=== PATIENT | female | born 1965 | race Caucasian/White ===

== ENCOUNTER → 2018-04-11 | Outpatient (CLI) | payer BC ==
[2018-04-11 16:17] LABS: Anisocytosis Slight; HGB 14.3 gm/dL (11.4-16.0); MCH 26.5 pg (25.0-35.0); MCHC 31.9 g/dL (31.0-37.0); MCV 83.1 fL (80.0-100.0); Platelet Count 197 k/uL (150-450); RBC 5.42 m/uL (3.80-5.40); RDW 16.9 % (11.5-15.5); WBC 3.4 k/uL (3.8-10.6)
[2018-04-11 23:03] LABS: Albumin 4.2 g/dL (3.80-4.90); Albumin/Globulin Ratio 1.91 (1.60-3.17); Anion Gap 16.8 mmol/L (4.00-12.00); Calcium 9.5 mg/dL (8.7-10.3); Carbon Dioxide 23.2 mmol/L (21.6-31.8); Globulin 2.2 g/dL (1.6-3.3); Phosphorus 4.3 mg/dL (2.4-5.1); Total Bilirubin 0.4 mg/dL (0.3-1.2); Total Protein 6.4 g/dL (6.2-8.2)
[2018-04-11 23:04] LABS: LDL Cholesterol,Calculated 77.2 mg/dL (0.0-131.0); Magnesium 1.9 mg/dL (1.5-2.4); Uric Acid 10.5 mg/dL (2.9-7.7); VLDL Calculation 19.8 mg/dL (5.00-40.00)
[2018-04-11 23:06] LABS: Vitamin D 25 Hydroxy 56.7 ng/mL (30.0-100.0)
[2018-04-11 23:15] LABS: Folate, Serum 12.8 ng/mL
[2018-04-12 02:06] LABS: Hemoglobin A1C 5.1 % (4.0-6.0)
== END | disposition home or self-care (01) ==
LOC: LABWHC1 15:52
PROVIDERS: ATTEND Surgery
DX: I10 Essential (primary) hypertension (principal); K21.9 Gastro-esophageal reflux disease without esophagitis; M25.50 Pain in unspecified joint; G47.33 Obstructive sleep apnea (adult) (pediatric); E66.01 Morbid (severe) obesity due to excess calories; Z79.899 Other long term (current) drug therapy
CPT/HCPCS: 36415; 80053; 80061; 82306; 82607; 82746; 83036; 83540; 83735; 84100; 84425; 84550; 85027

== ENCOUNTER → 2018-04-16 | Outpatient (CLI) | payer BC ==
[2018-04-16 17:00] VITALS: BP 136/88; PULSE 64; TEMP 97.5; BMI 41.1
--- NOTE | 2018-04-16 17:46 | P.HPBAR ---
Bariatric H&P - History & Physicial H&P Date: 04/16/18 History & Physicial: Visit/CC: bariatric follow up Patient initial contact: Initial weight: Initial weight in pounds: Height: 5 ft 5 in Initial BMI: Last weight: Current weight: 112.037 kg Current weight in pounds: 247.00 Current BMI: 41.1 [place] body weight (based on NIH guidelines): 56.699 kg Excess body weight loss: The patient is a 52 year-old F who presents for Bariatric Assessment. HPI: She presents after weight loss surgery at a different center in [place]. Feb 25 gastric bypass. One vomiting event. No nausea. No belly pain. She had a drain placed and remobed. She had rumbling and loud sounds of the belly. She is on an antacid Omeprazole. Highest weight 324 pounds. Today she comes in 247.5 pounds. She is on a MVI. Protein is 60 grams. High blood pressure prior to surgery. Sleep apnea is now resolved. CPAP machine is very strong. For exercise, no further pain. No gallbladder. ABDOMEN: No hernia PLAN: 1. Went over labs 2. Recommend labs in July. 3. Followup in 6 months follow-up Past Medical History Past Medical History: GERD/Reflux History of Any Multi-Drug Resistant Organisms: None Reported Past Surgical History: Bariatric Surgery, Cholecystectomy, Orthopedic Surgery Additional Past Surgical History / Comment(s): knee replacement gastric bypass -18 in [place] Past Anesthesia/Blood Transfusion Reactions: No Reported Reaction Past Psychological History: Depression Smoking Status: Never smoker Past Alcohol Use History: Occasional Past Drug Use History: None Reported Surgical - Exam Vital Signs Temp Pulse BP 97.5 F L 64 136/88 04/16/18 16:48 04/16/18 16:48 04/16/18 16:48 Bariatric Checklist Checklist: Plan: Checklist: EGD: 1. Hiatal hernia: 2. H. Pylori: HgbA1c: Vitamin D: Smoking: Never smoker Primary care physician referral: Psychiatry clearance: Cardiology clearance: Sleep study: Diet journal: VTE risk score: VTE risk level: Rehab needs at discharge:
== END ==
LOC: BARWHC3 14:59
PROVIDERS: ATTEND Surgery Plastic and Reconstructive Surgery
DX: E66.01 Morbid (severe) obesity due to excess calories (principal)
CPT/HCPCS: 97803; 99201; 99211

== ENCOUNTER → 2018-06-27 | Outpatient (CLI) | payer BC ==
[2018-06-27 13:01] LABS: Anisocytosis Slight; HCT 45.7 % (34.0-46.0); HGB 14.2 gm/dL (11.4-16.0); MCH 27.7 pg (25.0-35.0); MCV 89.3 fL (80.0-100.0); Mean Platelet Volume 8.7; Platelet Count 228 k/uL (150-450); RBC 5.12 m/uL (3.80-5.40); RDW 16.4 % (11.5-15.5); WBC 5.7 k/uL (3.8-10.6)
[2018-06-27 13:16] LABS: Prothrombin Time 10.5 sec (9.0-12.0)
[2018-06-27 18:59] LABS: Albumin 4.3 g/dL (3.80-4.90); Albumin/Globulin Ratio 1.95 (1.60-3.17); Anion Gap 12.7 mmol/L (4.00-12.00); Calcium 9.5 mg/dL (8.7-10.3); Carbon Dioxide 24.3 mmol/L (21.6-31.8); Globulin 2.2 g/dL (1.6-3.3); Iron Saturation 12.29 (12.00-45.00); LDL Cholesterol,Calculated 114.6 mg/dL (0.0-131.0); Magnesium 2.2 mg/dL (1.5-2.4); Phosphorus 4.5 mg/dL (2.4-5.1); Potassium 4.1 mmol/L (3.5-5.5); Total Bilirubin 0.6 mg/dL (0.3-1.2); Total Protein 6.5 g/dL (6.2-8.2); VLDL Calculation 18.4 mg/dL (5.00-40.00)
[2018-06-27 19:08] LABS: Vitamin D 25 Hydroxy 56.6 ng/mL (30.0-100.0)
[2018-06-27 19:17] LABS: Parathyroid Hormone Intact 83.4 pg/mL (14.0-72.0)
[2018-06-27 19:22] LABS: Folate, Serum 12.6 ng/mL
[2018-06-27 19:55] LABS: Hemoglobin A1C 4.9 % (4.0-6.0)
[2018-06-30 05:48] LABS: Vitamin A 25 ug/dL (38-106)
[2018-07-01 06:15] LABS: Zinc, Serum 78 ug/dL (60-130)
== END | disposition home or self-care (01) ==
LOC: LABWHC1 12:18
PROVIDERS: ATTEND Surgery Plastic and Reconstructive Surgery
DX: E21.1 Secondary hyperparathyroidism, not elsewhere classified (principal); D50.9 Iron deficiency anemia, unspecified; E89.1 Postprocedural hypoinsulinemia; E44.0 Moderate protein-calorie malnutrition; E55.9 Vitamin D deficiency, unspecified; K74.1 Hepatic sclerosis; N19 Unspecified kidney failure; K50.90 Crohn's disease, unspecified, without complications; E66.01 Morbid (severe) obesity due to excess calories
CPT/HCPCS: 36415; 80053; 80061; 82306; 82525; 82607; 82728; 82746; 83036; 83540; 83550; 83735; 83970; 84100; 84134; 84255; 84425; 84443; 84590; 84630; 85027; 85610; 85730

== ENCOUNTER → 2018-07-02 | Outpatient (CLI) | payer BC ==
[2018-07-02 16:28] VITALS: BP 124/83; PULSE 71; RESP 16; TEMP 97.8; BMI 37.1
--- NOTE | 2018-07-02 17:24 | P.PN ---
Subjective Progress Note Date: 07/02/18 HPI: She reports chronic iron deficiency anemia. She has pain when she does not take her Omeprazole. ABDOMEN: Unremarkable ASSESSMENT: 1. Morbid obesity 2. Iron deficiency anemia 3. Vitamin A deficiency PLAN: 1. Iron infusion 2. Vitamin A 10,000 units daily 3. Increase fiber to 25 grams daily 4. Increase to 90 oz. 5. Food diary journal reviewed. Objective - Vital Signs Vital signs: Vital Signs Temp 97.8 F 07/02/18 16:25 Pulse 71 07/02/18 16:25 Resp 16 07/02/18 16:25 BP 124/83 07/02/18 16:25 Pulse Ox 98 07/02/18 16:25 Intake & Output 07/01/18 07/02/18 07/02/18 18:59 06:59 18:59 Weight 101.333 kg
== END | disposition home or self-care (01) ==
LOC: BARWHC3 15:28
PROVIDERS: ATTEND Surgery Plastic and Reconstructive Surgery
DX: E66.01 Morbid (severe) obesity due to excess calories (principal); D50.9 Iron deficiency anemia, unspecified; E50.9 Vitamin A deficiency, unspecified; Z68.37 Body mass index [BMI] 37.0-37.9, adult
CPT/HCPCS: 97803; 99211

== ENCOUNTER → 2018-07-03 | Outpatient (CLI) | payer BC ==
--- NOTE | 2018-07-04 09:59 | US ---
EXAMINATION TYPE: US pelvis complete transvag DATE OF EXAM: 07/03/2018 COMPARISON: NONE CLINICAL HISTORY: N92.1 Menorrhagia. Menorrhagia. Last period lasted 3 weeks. Last period was in . Premenopausal. TECHNIQUE: Transvaginal (TV) and Transabdominal (TA) . Transabdominal sonographic images of the pel vis were acquired. Transvaginal sonographic images were medically necessary to better assess the fol lowing anatomy: Endometrium and ovaries. Date of LMP: Pt unsure, in February. EXAM MEASUREMENTS: Uterus: 7.4 x 4.1 x 3.7 cm Endometrial Stripe: 0.45 cm Right Ovary: Not seen Left Ovary: Not seen 1. Uterus: Appears very heterogeneous. Anteverted. Hypoechoic area seen lower uterine segment sugges tive of a nabothian cyst. 2. Endometrium: Limited in visibility. 3. Right Ovary: Not visualized. 4. Left Ovary: Not visualized. 5. Bilateral Adnexa: appears wnl. 6. Posterior cul-de-sac: appears wnl. IMPRESSION: 1. No suspicious acute changes. 2. Probable nabothian cyst cervix. 3. Uterus is heterogenous. Discrete masses are not identified. 4. MRI is available if closer evaluation would be of benefit.
== END | disposition home or self-care (01) ==
LOC: RADUSWWP 15:41
PROVIDERS: ATTEND Obstetrics & Gynecology
DX: N85.8 Other specified noninflammatory disorders of uterus (principal); N92.1 Excessive and frequent menstruation with irregular cycle
CPT/HCPCS: 76830; 76856

== ENCOUNTER → 2018-07-16 | Outpatient (CLI) | payer BC ==
--- NOTE | 2018-07-17 08:28 | BD ---
EXAMINATION TYPE: Axial Bone Density DATE OF EXAM: 07/16/2018 COMPARISON: NONE CLINICAL HISTORY: post menopausal : n Height: 5'3 / Weight: 215 FRAX RISK QUESTIONS: Secondary Osteoporosis: 3. Menopause before 45: n RISK FACTORS HISTORY OF: If Premenopausal, do you have irregular periods: y MEDICATIONS: Thyroid Medications: Which medication: Synthroid How Lon month Additional Medications: anti depressant, reflux medicine Additional History: gastric bypass 02/2018 EXAM MEASUREMENTS: Bone mineral densitometry was performed using the [employer] System. Bone mineral density as measured about the Lumbar spine is: ----- L1-L4(G/cm2): 1.222 T Score Values are as follows: ----- L2: 0.3 ----- L3: 0.6 ----- L4: 0.4 ----- L1-L4: 0.3 Bone mineral density about the R hip (g/cm2): 0.949 Bone mineral density about the L hip (g/cm2): 0.930 T Score values are as follows: -----R Neck: -0.6 -----L Neck: -0.8 -----R Total: 0.5 -----L Total: -0.1 IMPRESSION: Normal (Values between +1 and -1 indicate normal bone mass). Consider repeating this study in 5 year s or sooner if there is some new clinical indication. NOTE: T-SCORE=SD OF THE YOUNG ADULT MEAN.
--- NOTE | 2018-07-18 14:09 | MM ---
Reason for exam: screening (asymptomatic). Last mammogram was performed 2 years and 6 months ago. History: Patient is nulliparous. Physical Findings: A clinical breast exam by your physician is recommended on an annual basis and results should be correlated with mammographic findings. MG 3D Screening Mammo W/Cad Bilateral CC and MLO view(s) were taken. Prior study comparison: January 20, 2016, mammogram, performed at [facility]. April 07, 2012, mammogram, performed at [facility]. The breast tissue is heterogeneously dense. This may lower the sensitivity of mammography. No significant changes when compared with prior studies. ASSESSMENT: Benign, BI-RAD 2 RECOMMENDATION: Routine screening mammogram of both breasts in 1 year.
== END | disposition home or self-care (01) ==
LOC: RADBDWWP 15:30
PROVIDERS: ATTEND Internal Medicine
DX: Z12.31 Encounter for screening mammogram for malignant neoplasm of breast (principal); N95.1 Menopausal and female climacteric states
CPT/HCPCS: 77063; 77067; 77080

== ENCOUNTER → 2018-09-18 | Outpatient (CLI) | payer OTHER ==
[2018-09-18 11:01] LABS: HCT 47.7 % (34.0-46.0); HGB 15.4 gm/dL (11.4-16.0); MCH 30.4 pg (25.0-35.0); MCHC 32.2 g/dL (31.0-37.0); MCV 94.4 fL (80.0-100.0); Mean Platelet Volume 8.3; Platelet Count 202 k/uL (150-450); RBC 5.06 m/uL (3.80-5.40); RDW 14.5 % (11.5-15.5); WBC 4.6 k/uL (3.8-10.6)
[2018-09-18 11:13] LABS: Partial Thromboplastin Time 25.3 sec (22.0-30.0); Prothrombin Time 10.5 sec (9.0-12.0)
[2018-09-18 18:47] LABS: Albumin 4.1 g/dL (3.80-4.90); Albumin/Globulin Ratio 1.95 (1.60-3.17); Anion Gap 10.6 mmol/L (4.00-12.00); BUN/Creat Ratio 25.71 Ratio (12.00-20.00); Calcium 9.4 mg/dL (8.7-10.3); Carbon Dioxide 29.4 mmol/L (21.6-31.8); Globulin 2.1 g/dL (1.6-3.3); Magnesium 2.2 mg/dL (1.5-2.4); Phosphorus 4.9 mg/dL (2.4-5.1); Potassium 4.3 mmol/L (3.5-5.5); Total Bilirubin 0.6 mg/dL (0.3-1.2); Total Protein 6.2 g/dL (6.2-8.2)
[2018-09-18 18:55] LABS: Vitamin D 25 Hydroxy 59.2 ng/mL (30.0-100.0)
[2018-09-18 19:11] LABS: Folate, Serum 12.8 ng/mL; Iron Saturation 27.42 (12.00-45.00)
[2018-09-19 12:44] LABS: Zinc, Serum 71 ug/dL (60-130)
== END | disposition home or self-care (01) ==
LOC: LABWHC1 09:52
PROVIDERS: ATTEND Surgery Plastic and Reconstructive Surgery
DX: E79.0 Hyperuricemia without signs of inflammatory arthritis and tophaceous disease (principal); E66.01 Morbid (severe) obesity due to excess calories; E21.1 Secondary hyperparathyroidism, not elsewhere classified; E89.1 Postprocedural hypoinsulinemia; D50.9 Iron deficiency anemia, unspecified; K90.9 Intestinal malabsorption, unspecified; E55.9 Vitamin D deficiency, unspecified; K76.9 Liver disease, unspecified; N19 Unspecified kidney failure; K50.90 Crohn's disease, unspecified, without complications
CPT/HCPCS: 36415; 80053; 80061; 82306; 82525; 82607; 82728; 82746; 83036; 83540; 83550; 83735; 83970; 84100; 84134; 84255; 84425; 84443; 84550; 84590; 84630; 85027; 85610; 85730

== ENCOUNTER → 2018-10-01 | Outpatient (CLI) | payer BC, OTHER ==
--- NOTE | 2018-10-01 16:37 | P.PN ---
Subjective Progress Note Date: 10/01/18 DATE OF SERVICE: 10/01/2018 CHIEF COMPLAINT: Status post gastric bypass HISTORY OF PRESENT ILLNESS: Teddy Worley is a 53-year-old female who presents after weight loss surgery at a different center in [place]. She had her surgery Feb 25, 2018 for gastric bypass. She is 7 months out. She has lost another 50 pounds in 3 months. She reports her epigastric pain is better after taking Omeprazole. She is on thyroid supplement. At height of 5 feet 5 inches, her ideal body weight is 149 pounds. She comes in 188 pounds from 223 pounds, 3 months ago. She has lost 35 pounds in 3 months. Her highest weight was 324 pounds. Her body mass index highest was 54.0. Today her BMI is 31.3. She has lost 136 pounds lifetime. Lifetime percent excess weight loss is 78 %. PAST MEDICAL HISTORY: 1. Morbid obesity due to excess calories 2. Body mass index of 54.0, initial 3. Osteoarthritis of the knees. 4. Osteoarthritis of the lower back. 5. Hypertensive heart disease. 6. Gastroesophageal reflux disease 7. Depressive disorder 8. Obstructive sleep apnea PAST SURGICAL HISTORY: 1. Cholecystectomy 2. Gastric Bypass 3. Orthopedic procedure HOME MEDICATIONS: ALLERGIES: Medications and Allergies Home Medications Medication Instructions Recorded Confirmed Type Calcium Citrate 250 mg PO TID 04/09/18 07/02/18 History Multivitamins, Thera [Multivitamin 1 tab PO DAILY 04/09/18 07/02/18 History (formulary)] Omeprazole 20 mg PO BID 04/09/18 07/02/18 History Sertraline [Zoloft] 25 mg PO DAILY 04/09/18 07/02/18 History Levothyroxine Sodium [Synthroid] 50 mcg PO DAILY #60 tab 05/15/18 07/02/18 Rx [place]-3 Fatty Acids [[place]-3] 1,000 mg PO DAILY 07/02/18 07/02/18 History Allergies Allergy/AdvReac Type Severity Reaction Status Date / Time nickel Allergy Swelling Verified 07/02/18 16:23 Tetracyclines Allergy Rash/Hives Verified 07/02/18 16:23 SOCIAL HISTORY: Past tobacco use. FAMILY HISTORY: No family history of ulcerative colitis disease or Crohn's disease. Family history of morbid obesity. No lupus in the family. No reports of stomach or esophageal cancer. REVIEW OF ORGAN SYSTEMS: CONSTITUTIONAL: At height of 5 feet 5 inches, her ideal body weight is 149 pounds. Her highest weight was 324 pounds. Her body mass index highest was 54.0. HEENT: Denies any active troubles with vision or hearing. No troubles with swallowing. ENDOCRINE: No diabetes. No hypothyroidism. CARDIOVASCULAR: No reports of palpitations or heart attacks or chest pain. RESPIRATORY: Has daytime somnolence. No asthma. GI: Denies any bright red blood per rectum. No diarrhea. Has constipation. MUSCULOSKELETAL: Has lower back pain and joint pain. Has osteoarthritis of the knees. NEURO: No headaches. No seizure disorders. PSYCH: Has depression. No suicidal ideation. RHEUMATOLOGIC: No lupus. No rheumatoid arthritis. HEMATOLOGIC: Denies any abnormal bleeding or bruising. No personal history of DVTs. SKIN: No rash. No skin cancer. PHYSICAL EXAM: VITAL SIGNS: Height 5 foot 5 inches, weight 188 pounds. BMI 31.3 Vital Signs Temp 97.8 F 07/02/18 16:25 Pulse 71 07/02/18 16:25 Resp 16 07/02/18 16:25 BP 124/83 07/02/18 16:25 Pulse Ox 98 07/02/18 16:25 GENERAL: Well-developed in no acute distress. HEENT: No scleral icterus. Extraocular movements grossly intact. Hears conversational speech. No nasal drainage. NECK: Supple without lymphadenopathy. CHEST: Nonlabored respirations with equal bilateral excursions. CARDIOVASCULAR: Regular rate and regular rhythm. Distal 2+ pulses. ABDOMEN: Obese, soft, nontender, nondistended. No hernia. MUSCULOSKELETAL: No clubbing, cyanosis. Gross strength 5/5 distal lower extremities. NEURO: No focal or lateralizing signs. Cranial nerves 2 through 12 grossly within normal limits. PSYCH: Appropriate affect. Alert and oriented to person, place and time. SKIN: Good skin turgor. Well perfused. LABS: Pre-albumin is low 14, Vitamin A is low 35, TSH is elevated 5.780 ASSESSMENT: 1. Morbid obesity due to excess calories 2. Body mass index of 54.0 3. Osteoarthritis of the knees. 4. Osteoarthritis of the lower back. 5. Hypertensive heart disease. 6. Gastroesophageal reflux disease 7. Depressive disorder 8. Obstructive sleep apnea 9. Iron deficiency anemia 10. Vitamin A deficiency 11. Chronic constipation 12. Dietary surveillance and counseling 13. Hypothyroidism, new PLAN: 1. Labs reviewed with Vitamin A supplement 8000 units daily 2. Will need renewal of Omeprazole 3. Recommend increase thyroid medications 4. Recommend upper scope for gastric ulcers Objective - Vital Signs Vital signs: Vital Signs Temp 97.8 F 10/01/18 15:58 Pulse 76 10/01/18 15:58 Resp 16 10/01/18 15:58 BP 121/84 10/01/18 15:58 Pulse Ox Intake & Output 09/30/18 10/01/18 10/01/18 18:59 06:59 18:59 Weight 85.304 kg
== END ==
CPT/HCPCS: 99211

== ENCOUNTER 2018-11-03 10:11 | Day surgery (SDC) | payer OTHER ==
[2018-10-31 11:33] VITALS: BMI 28.8
--- NOTE | 2018-11-03 01:56 | P.GSHP ---
History of Present Illness H&P Date: 11/03/18 CHIEF COMPLAINT: GERD HISTORY OF PRESENT ILLNESS: The patient is a 53-year-old female who presents reports gastroesophageal reflux disease. Upper endoscopy was offered for further evaluation and management. PAST MEDICAL HISTORY: Please see list. PAST SURGICAL HISTORY: Please see list. MEDICATIONS: Please see list. ALLERGIES: Please see list. SOCIAL HISTORY: No illicit drug use FAMILY HISTORY: No reports of Crohn disease or ulcerative colitis. REVIEW OF ORGAN SYSTEMS: CONSTITUTIONAL: No reports of fevers or chills. GI: Denies any blood in stools or constipation. PHYSICAL EXAM: VITAL SIGNS: Stable GENERAL: Well-developed and pleasant in no acute distress. HEENT: No scleral icterus. Extraocular movements grossly intact. Moist buccal mucosa. NECK: Supple without lymphadenopathy. CHEST: Unlabored respirations. Equal bilateral excursions. CARDIOVASCULAR: Regular rate and rhythm. Distal 2+ pulses. ABDOMEN: Soft, nondistended. MUSCULOSKELETAL: No clubbing, cyanosis, or edema. ASSESSMENT: 1. Gastroesophageal reflux disease PLAN: 1. Recommend proceeding with an upper endoscopy Past Medical History Past Medical History: GERD/Reflux History of Any Multi-Drug Resistant Organisms: None Reported Past Surgical History: Bariatric Surgery, Cholecystectomy, Orthopedic Surgery Additional Past Surgical History / Comment(s): left knee replacement, EGD, gastric bypass 1218 in [place] (Dr. Neida Sadler resumed care of patient at 30 day luz). Past Anesthesia/Blood Transfusion Reactions: Previous Problems w/ Anesthesia Additional Past Anesthesia/Blood Transfusion Reaction / Comment(s): states "woke up choking with previous EGD" states "takes alot to put me to sleep" Smoking Status: Never smoker - Past Family History Mother Family Medical History: No Reported History Medications and Allergies Home Medications Medication Instructions Recorded Confirmed Type Calcium Citrate 250 mg PO TID 04/09/18 10/31/18 History Multivitamins, Thera [Multivitamin 1 tab PO DAILY 04/09/18 10/31/18 History (formulary)] Sertraline [Zoloft] 25 mg PO DAILY 04/09/18 10/31/18 History Docusate [Colace] 100 mg PO BID #60 capsule 10/01/18 10/31/18 Rx Levothyroxine Sodium [Synthroid] 75 mcg PO DAILY #90 tab 10/01/18 10/31/18 Rx Omeprazole 20 mg PO DAILY #30 cap 10/01/18 10/31/18 Rx Polyethylene Glycol 3350 [Miralax] 17 gm PO DAILY #30 packet 10/01/18 10/31/18 Rx Vitamin A Acetate [Vitamin A] 10,000 unit SL DAILY 10/31/18 10/31/18 History Allergies Allergy/AdvReac Type Severity Reaction Status Date / Time nickel Allergy Swelling Verified 10/31/18 11:27 Tetracyclines Allergy Rash/Hives Verified 10/31/18 11:27 steri strips Allergy blisters Uncoded 10/31/18 11:27
[~2018-11-03 10:11] MED LIST: LACTATED RINGERS 1,000 ML IV SCH; LIDOCAINE 1% 20 ML VIAL (10MG/ML) FOR IV START INTRADERMA PRN
[2018-11-03 10:45] VITALS: RESP 16; TEMP 97.4
[2018-11-03] MEDS ORDERED: KETAMINE 10 MG/ML 20 ML VIAL ONE (10:51)
[2018-11-03] MEDS ORDERED: MIDAZOLAM 2 MG/2 ML VIAL ONE (10:51)
[2018-11-03] MEDS ORDERED: LIDOCAINE 1% INJ 10MG/ML (20 ML MDV) ONE (10:51)
[2018-11-03] MEDS ORDERED: PROPOFOL 10 MG/ML 20 ML VIAL IV ONE (10:51)
[2018-11-03 11:16] VITALS: BP 95/59; PULSE 82
--- NOTE | 2018-11-03 11:16 | P.PCN ---
Date of Procedure: 11/03/18 Description of Procedure: PREOPERATIVE DIAGNOSIS: Dysphagia. Epigastric abdominal pain Gastroesophageal reflux disease POSTOPERATIVE DIAGNOSIS: Dysphagia. Epigastric abdominal pain Gastroesophageal reflux disease Gastrojejunal stricture without chronic ulcer without perforation Diaphragmatic hiatal hernia OPERATION: Esophagogastrojejunoscopy with balloon dilatation from 15 to 20 mm. SURGEON: Neida Sadler MD ANESTHESIA: MAC. INDICATIONS: The patient is a 53-year-old female who presents with a history of dysphagia, gastric bypass including new-onset nausea and vomiting. Benefits and risks of the procedure were described. Informed consent was obtained. DESCRIPTION: The patient was brought into the endoscopy suite and laid in the left lateral decubitus position. After a timeout was confirmed, the procedure was initiated. An Olympus gastroscope was passed along the posterior oropharynx down to the distal esophagus where the squamocolumnar junction was unremarkable. The gastric pouch was entered. A gastrojejunal stricture of 15 mm was found as the adult gastroscope was 9.5 mm in size. A [employer] balloon dilator was placed through the scope. Final insufflation up to 20 mm was performed with a total of 2 minutes. The scope was advanced up to 60 cm from the incisors into the Ava limb. The mucosa of the gastrojejunal anastomosis was intact. No chronic gastrojejunal marginal ulcer was encountered. No full-thickness injury was encountered. The GI tract was desufflated. The patient tolerated the procedure well. FINDINGS: Squamocolumnar junction unremarkable at 37 cm. Stricture of approximately 15 mm encountered. No chronic gastrojejunal ulceration encountered. Successful balloon dilatation to 20 mm. Diaphragmatic hiatus at 40 cm. Gastric pouch 3 cm. Diaphragmatic hiatal hernia 3 cm RECOMMENDATIONS: Upper endoscopy as needed Plan - Discharge Summary Discharge Rx Participant: No New Discharge Prescriptions: No Action Sertraline [Zoloft] 25 mg PO DAILY Multivitamins, Thera [Multivitamin (formulary)] 1 tab PO DAILY Calcium Citrate 250 mg PO TID Levothyroxine Sodium [Synthroid] 75 mcg PO DAILY #90 tab Omeprazole 20 mg PO DAILY #30 cap Docusate [Colace] 100 mg PO BID #60 capsule Polyethylene Glycol 3350 [Miralax] 17 gm PO DAILY #30 packet Vitamin A Acetate [Vitamin A] 10,000 unit SL DAILY Discharge Medication List Calcium Citrate 250 mg PO TID 04/09/18 [History] Multivitamins, Thera [Multivitamin (formulary)] 1 tab PO DAILY 04/09/18 [History] Sertraline [Zoloft] 25 mg PO DAILY 04/09/18 [History] Docusate [Colace] 100 mg PO BID #60 capsule 10/01/18 [Rx] Levothyroxine Sodium [Synthroid] 75 mcg PO DAILY #90 tab 10/01/18 [Rx] Omeprazole 20 mg PO DAILY #30 cap 10/01/18 [Rx] Polyethylene Glycol 3350 [Miralax] 17 gm PO DAILY #30 packet 10/01/18 [Rx] Vitamin A Acetate [Vitamin A] 10,000 unit SL DAILY 10/31/18 [History] Follow up Appointment(s)/Referral(s): [facility] [place], [place] [NON-STAFF] - 11/19/18 Patient Instructions/Handouts: Esophageal Dilation (DC), Hiatal Hernia (DC) Activity/Diet/Wound Care/Special Instructions: Diet as tolerated Discharge Disposition: HOME SELF-CARE
== END 2018-11-03 11:52 | disposition home or self-care (01) ==
LOC: ORWHC2ENDO 10:11
PROVIDERS: ATTEND Surgery Plastic and Reconstructive Surgery
DX: K95.89 Other complications of other bariatric procedure (principal); K44.9 Diaphragmatic hernia without obstruction or gangrene; K21.9 Gastro-esophageal reflux disease without esophagitis; E07.9 Disorder of thyroid, unspecified; Z90.49 Acquired absence of other specified parts of digestive tract; Z96.652 Presence of left artificial knee joint; Z79.890 Hormone replacement therapy; Z79.899 Other long term (current) drug therapy; Z88.1 Allergy status to other antibiotic agents; Z91.048 Other nonmedicinal substance allergy status; Z91.09 Other allergy status, other than to drugs and biological substances
CPT/HCPCS: 81025; 43245; J2250; J2001; J2704; C1726

== ENCOUNTER → 2019-03-26 | Outpatient (CLI) | payer OTHER ==
[2019-03-26 11:23] LABS: HCT 48.3 % (34.0-46.0); HGB 15.5 gm/dL (11.4-16.0); MCH 31.1 pg (25.0-35.0); MCV 97.1 fL (80.0-100.0); Mean Platelet Volume 7.4; Platelet Count 252 k/uL (150-450); RBC 4.97 m/uL (3.80-5.40); RDW 13.2 % (11.5-15.5); WBC 4.9 k/uL (3.8-10.6)
[2019-03-26 11:31] LABS: Prothrombin Time 10.3 sec (9.0-12.0)
[2019-03-26 15:46] LABS: % Iron Saturation 30.71 (12.00-45.00); African American GFR (CKD) 118.9 (60.0-200.0); Albumin 4.2 g/dL (3.80-4.90); Albumin/Globulin Ratio 2.63 (1.60-3.17); Anion Gap 9.7 mmol/L (4.00-12.00); BUN/Creat Ratio 28.33 Ratio (12.00-20.00); Carbon Dioxide 28.3 mmol/L (21.6-31.8); Chol/HDL Ratio 3.3; Globulin 1.6 g/dL (1.6-3.3); LDL Cholesterol,Calculated 140.4 mg/dL (0.0-131.0); Magnesium 2.2 mg/dL (1.5-2.4); Non-African American GFR(CKD) 102.6 (60.0-200.0); Phosphorus 4.2 mg/dL (2.4-5.1); Potassium 4.1 mmol/L (3.5-5.5); Total Bilirubin 0.6 mg/dL (0.3-1.2); Total Protein 5.8 g/dL (6.2-8.2); VLDL Calculation 11.6 mg/dL (5.00-40.00)
[2019-03-26 15:54] LABS: Ferritin 147.9 ng/mL (10.0-291.0)
[2019-03-26 16:21] LABS: Folate, Serum 18.6 ng/mL
[2019-03-26 16:34] LABS: Hemoglobin A1C 4.7 % (4.0-6.0)
[2019-03-27 13:50] LABS: Zinc, Serum 83 ug/dL (60-130)
[2019-03-28 11:13] LABS: Vitamin A 45 ug/dL (38-106)
[2019-03-28 23:15] LABS: Selenium 135 mcg/L (63-160)
[2019-03-30 06:31] LABS: Vit B1(Thiamine) 64 ug/L (38-122)
== END | disposition home or self-care (01) ==
LOC: LABWHC1 10:34
PROVIDERS: ATTEND Surgery Plastic and Reconstructive Surgery
DX: E66.01 Morbid (severe) obesity due to excess calories (principal); E21.1 Secondary hyperparathyroidism, not elsewhere classified; D50.9 Iron deficiency anemia, unspecified; K90.9 Intestinal malabsorption, unspecified; E55.9 Vitamin D deficiency, unspecified; K74.1 Hepatic sclerosis; N19 Unspecified kidney failure; K50.90 Crohn's disease, unspecified, without complications; E89.1 Postprocedural hypoinsulinemia
CPT/HCPCS: 36415; 80053; 80061; 82306; 82525; 82607; 82728; 82746; 83036; 83540; 83550; 83735; 83970; 84100; 84134; 84255; 84425; 84443; 84590; 84630; 85027; 85610; 85730

== ENCOUNTER → 2019-04-01 | Outpatient (CLI) | payer OTHER ==
[2019-04-01 16:21] VITALS: BP 122/80; PULSE 68; RESP 16; TEMP 97.9; BMI 23.9
--- NOTE | 2019-04-01 16:33 | P.PN ---
Subjective Progress Note Date: 04/01/19 DATE OF SERVICE: 04/01/2019 CHIEF COMPLAINT: Status post gastric bypass HISTORY OF PRESENT ILLNESS: Teddy Worley is a 53-year-old female who is status post gastric bypass in [place], Feb 25, 2018. She is 1 year out. She had knee surgery and had complications with a hematoma. She reports gastroesophageal reflux disease. She denies any active abdominal pain. She is happy with her weigh loss. She denies fatigue. She is off all blood pressure medications. At height of 5 feet 5 inches, her ideal body weight is 149 pounds. Her highest weight was 324 pounds. Her body mass index highest was 54.0. She comes in 144 pounds from 188 pounds, 6 months ago. She has lost 44 pounds in 6 months. T [place] her BMI is 24.0. She has lost 180 pounds lifetime. Lifetime percent excess weight loss is 103 %. PAST MEDICAL HISTORY: 1. Morbid obesity due to excess calories 2. Body mass index of 54.0, initial 3. Osteoarthritis of the knees. 4. Osteoarthritis of the lower back. 5. Hypertensive heart disease. 6. Gastroesophageal reflux disease 7. Depressive disorder 8. Obstructive sleep apnea PAST SURGICAL HISTORY: 1. Cholecystectomy 2. Gastric Bypass 3. Orthopedic procedure HOME MEDICATIONS: ALLERGIES: Medications and Allergies Home Medications Medication Instructions Recorded Confirmed Type Calcium Citrate 250 mg PO TID 04/09/18 07/02/18 History Multivitamins, Thera [Multivitamin 1 tab PO DAILY 04/09/18 07/02/18 History (formulary)] Omeprazole 20 mg PO BID 04/09/18 07/02/18 History Sertraline [Zoloft] 25 mg PO DAILY 04/09/18 07/02/18 History Levothyroxine Sodium [Synthroid] 50 mcg PO DAILY #60 tab 05/15/18 07/02/18 Rx [place]-3 Fatty Acids [[place]-3] 1,000 mg PO DAILY 07/02/18 07/02/18 History Allergies Allergy/AdvReac Type Severity Reaction Status Date / Time nickel Allergy Swelling Verified 07/02/18 16:23 Tetracyclines Allergy Rash/Hives Verified 07/02/18 16:23 SOCIAL HISTORY: Past tobacco use. FAMILY HISTORY: No family history of ulcerative colitis disease or Crohn's disease. Family history of morbid obesity. No lupus in the family. No reports of stomach or esophageal cancer. REVIEW OF ORGAN SYSTEMS: CONSTITUTIONAL: At height of 5 feet 5 inches, her ideal body weight is 149 pounds. Her highest weight was 324 pounds. Her body mass index highest was 54.0. HEENT: Denies any active troubles with vision or hearing. No troubles with swallowing. ENDOCRINE: No diabetes. No hypothyroidism. CARDIOVASCULAR: No reports of palpitations or heart attacks or chest pain. RESPIRATORY: Has daytime somnolence. No asthma. GI: Denies any bright red blood per rectum. No diarrhea. Has constipation. MUSCULOSKELETAL: Has lower back pain and joint pain. Has osteoarthritis of the knees. NEURO: No headaches. No seizure disorders. PSYCH: Has depression. No suicidal ideation. RHEUMATOLOGIC: No lupus. No rheumatoid arthritis. HEMATOLOGIC: Denies any abnormal bleeding or bruising. No personal history of DVTs. SKIN: No rash. No skin cancer. PHYSICAL EXAM: VITAL SIGNS: Height 5 foot 5 inches, weight 144 pounds. BMI 24.0 Vital Signs Temp 97.9 F 04/01/19 16:18 Pulse 68 04/01/19 16:18 Resp 16 04/01/19 16:18 BP 122/80 04/01/19 16:18 Pulse Ox GENERAL: Well-developed in no acute distress. HEENT: No scleral icterus. Extraocular movements grossly intact. Hears conversational speech. No nasal drainage. NECK: Supple without lymphadenopathy. CHEST: Nonlabored respirations with equal bilateral excursions. CARDIOVASCULAR: Regular rate and regular rhythm. Distal 2+ pulses. ABDOMEN: Obese, soft, nontender, nondistended. No hernia. MUSCULOSKELETAL: No clubbing, cyanosis. NEURO: No focal or lateralizing signs. Cranial nerves 2 through 12 grossly within normal limits. PSYCH: Appropriate affect. Alert and oriented to person, place and time. SKIN: Good skin turgor. Well perfused. LABS: Reviewed without any vitamin deficiences ASSESSMENT: 1. Morbid obesity due to excess calories 2. Body mass index of 54.0 to 24.0. 3. Osteoarthritis of the knees. 4. Osteoarthritis of the lower back 5. Hypertensive heart disease. 6. Gastroesophageal reflux disease 7. Depressive disorder 8. Obstructive sleep apnea 9. Iron deficiency anemia 10. Vitamin A deficiency 11. Chronic constipation 12. Dietary surveillance and counseling 13. Hypothyroidism, new PLAN: 1. She has symptomatic reflux with gastroesophageal reflux disease. 2. Recommend hiatal hernia repair for symptomatic reflux. Objective - Vital Signs Vital signs: Vital Signs Temp 97.9 F 04/01/19 16:18 Pulse 68 04/01/19 16:18 Resp 16 04/01/19 16:18 BP 122/80 04/01/19 16:18 Pulse Ox Intake & Output 03/31/19 04/01/19 04/01/19 18:59 06:59 18:59 Weight 65.317 kg
== END | disposition home or self-care (01) ==
LOC: BARWHC3 15:36
PROVIDERS: ATTEND Surgery Plastic and Reconstructive Surgery
DX: Z48.815 Encounter for surgical aftercare following surgery on the digestive system (principal); E66.01 Morbid (severe) obesity due to excess calories; M17.0 Bilateral primary osteoarthritis of knee; I11.9 Hypertensive heart disease without heart failure; K21.9 Gastro-esophageal reflux disease without esophagitis; G47.33 Obstructive sleep apnea (adult) (pediatric); D50.9 Iron deficiency anemia, unspecified; E50.9 Vitamin A deficiency, unspecified; K59.09 Other constipation; E03.9 Hypothyroidism, unspecified; Z71.3 Dietary counseling and surveillance; Z68.24 Body mass index [BMI] 24.0-24.9, adult; Z83.49 Family history of other endocrine, nutritional and metabolic diseases; Z87.891 Personal history of nicotine dependence; Z90.49 Acquired absence of other specified parts of digestive tract; Z79.899 Other long term (current) drug therapy; Z79.890 Hormone replacement therapy; Z88.1 Allergy status to other antibiotic agents; Z91.048 Other nonmedicinal substance allergy status
CPT/HCPCS: 99211

== ENCOUNTER → 2020-05-25 | Outpatient (CLI) | payer OTHER ==
[2020-05-26 01:02] LABS: Partial Thromboplastin Time 26.4 sec (23.5-31.0); Prothrombin Time 10.9 sec (9.9-11.9)
[2020-05-26 01:08] LABS: Basophils # (A) 0.01 X 10*3/uL (0.00-0.10); Basophils % (A) 0.2 %; Eosinophils # (A) 0.05 X 10*3/uL (0.04-0.35); HCT 48.1 % (37.2-46.3); HGB 15.2 g/dL (12.0-15.0); Lymphocytes # (A) 2.07 X 10*3/uL (0.90-5.00); Lymphocytes % (A) 39.5 %; MCH 29.7 pg (27.0-32.0); MCHC 31.6 g/dL (32.0-37.0); MCV 93.9 fL (80.0-97.0); Mean Platelet Volume 9.7 fL (9.5-12.2); Monocytes # (A) 0.32 X 10*3/uL (0.20-1.00); Monocytes % (A) 6.1 %; Neutrophils # (A) 2.78 X 10*3/uL (1.80-7.70); Platelet Count 281 X 10*3/uL (140-440); RBC 5.12 X 10*6/uL (4.10-5.20); RDW 12.3 % (11.5-14.5); WBC 5.24 X 10*3/uL (4.50-10.00)
[2020-05-26 05:00] LABS: % Iron Saturation 38.23 (12.00-45.00); ALT 26 U/L (8-44); AST 30 U/L (13-35); African American GFR (CKD) 112.3 (60.0-200.0); Albumin/Globulin Ratio 2.55 (1.60-3.17); Alkaline Phosphatase 62 U/L (41-126); Calcium 10.4 mg/dL (8.7-10.3); Carbon Dioxide 26.8 mmol/L (21.6-31.8); Chloride 100 mmol/L (96-109); Folate, Serum >24.0 ng/mL; Glucose 138 mg/dL (70-110); Iron 112 ug/dL (50-170); Magnesium 2.3 mg/dL (1.5-2.4); Non-African American GFR(CKD) 96.9 (60.0-200.0); Phosphorus 4.2 mg/dL (2.4-5.1); Potassium 4.2 mmol/L (3.5-5.5); Sodium 140 mmol/L (135-145); Total Bilirubin 0.7 mg/dL (0.3-1.2); Total Iron Binding Capacity 293 ug/dL (228-460); Total Protein 7.1 g/dL (6.2-8.2)
[2020-05-26 07:11] LABS: Hemoglobin A1C 5.2 % (4.0-6.0)
[2020-05-26 14:00] LABS: Zinc, Serum 88 ug/dL (60-130)
[2020-05-27 06:55] LABS: Vit B1(Thiamine) 82 ug/L (38-122)
[2020-05-27 07:03] LABS: Vitamin A 52 ug/dL (38-106)
== END | disposition home or self-care (01) ==
LOC: LABWHC1 15:05
PROVIDERS: ATTEND Surgery Plastic and Reconstructive Surgery
DX: E78.5 Hyperlipidemia, unspecified (principal); E03.9 Hypothyroidism, unspecified; E66.01 Morbid (severe) obesity due to excess calories; E89.1 Postprocedural hypoinsulinemia; D50.8 Other iron deficiency anemias; K90.89 Other intestinal malabsorption; E44.0 Moderate protein-calorie malnutrition; E55.9 Vitamin D deficiency, unspecified; K74.1 Hepatic sclerosis; N19 Unspecified kidney failure; K50.90 Crohn's disease, unspecified, without complications; Z12.31 Encounter for screening mammogram for malignant neoplasm of breast; Z79.899 Other long term (current) drug therapy
CPT/HCPCS: 36415; 80053; 82306; 82525; 82607; 82728; 82746; 83036; 83540; 83550; 83735; 83970; 84100; 84134; 84255; 84425; 84439; 84443; 84590; 84630; 85025; 85610; 85730

== ENCOUNTER 2020-05-26 14:55 | Inpatient (IN) | payer OTHER ==
[2020-05-26] MEDS ORDERED: IOPAMIDOL CONTRAST (ORAL USE) VIAL PO PRN (15:27)
[2020-05-26] MEDS ORDERED: HYDROmorphone 0.5 MG/0.5 ML SYRINGE IVP STA (15:28)
[2020-05-26] MEDS ORDERED: SODIUM CHLORIDE 0.9% 1,000 ML IV STA ×3 (15:28→17:21)
[2020-05-26 15:43] LABS: Basophils % (A) 0 %; Eosinophils # (A) 0.1 k/uL (0-0.7); Eosinophils % (A) 1 %; HCT 47.7 % (34.0-46.0); HGB 16.5 gm/dL (11.4-16.0); Lymphocytes # (A) 2.1 k/uL (1.0-4.8); Lymphocytes % (A) 24 %; MCH 31.3 pg (25.0-35.0); MCHC 34.7 g/dL (31.0-37.0); MCV 90.4 fL (80.0-100.0); Mean Platelet Volume 7.3; Monocytes # (A) 0.4 k/uL (0-1.0); Monocytes % (A) 4 %; Neutrophils # (A) 6.4 k/uL (1.3-7.7); Neutrophils % (A) 70 %; Platelet Count 322 k/uL (150-450); RBC 5.28 m/uL (3.80-5.40); RDW 12.3 % (11.5-15.5); WBC 9.1 k/uL (3.8-10.6)
--- NOTE | 2020-05-26 16:02 | ED ---
General Adult HPI - General Chief complaint: Abdominal Pain Stated complaint: Abd Pain Time Seen by Provider: 05/26/20 15:23 Source: EMS Mode of arrival: EMS - History of Present Illness Initial comments: 54-year-old female with a past medical history of GERD, vadim en Y who follows with Dr Sadler presents to the emergency room for a chief complaint of abdominal pain. Patient reports that she had abdominal pain starting earlier this morning and worsened significantly at 1. States it is in her mid abdomen. Patient states it is a very sharp pain.Patient has no other complaints at this time including shortness of breath, chest pain, nausea or vomiting, headache, or visual changes. - Related Data Home Medications Medication Instructions Recorded Confirmed Multivitamins, Thera [Multivitamin 1 tab PO DAILY 04/09/18 05/26/20 (formulary)] Vitamin A Acetate [Vitamin A] 10,000 unit SL DAILY 10/31/18 05/26/20 DULoxetine HCL [Cymbalta] 20 mg PO DAILY 05/26/20 05/26/20 L.acidoph,Paracasei, B.lactis 1 cap PO DAILY 05/26/20 05/26/20 [Probiotic] [place]-3 Fatty Acids [Boston-3] 1,000 mg PO DAILY 05/26/20 05/26/20 bisacodyL [Dulcolax] 10 mg PO BID PRN 05/26/20 05/26/20 Previous Rx's Medication Instructions Recorded Levothyroxine Sodium [Synthroid] 75 mcg PO DAILY #90 tab 10/01/18 Omeprazole 20 mg PO DAILY #30 cap 10/01/18 Allergies Allergy/AdvReac Type Severity Reaction Status Date / Time nickel Allergy Swelling Verified 05/26/20 16:10 Tetracyclines Allergy Rash/Hives Verified 05/26/20 16:10 steri strips Allergy blisters Uncoded 11/03/18 10:33 Review of Systems ROS Statement: Those systems with pertinent positive or pertinent negative responses have been documented in the HPI. ROS Other: All systems not noted in ROS Statement are negative. Past Medical History Past Medical History: GERD/Reflux History of Any Multi-Drug Resistant Organisms: None Reported Past Surgical History: Bariatric Surgery, Cholecystectomy, Orthopedic Surgery Additional Past Surgical History / Comment(s): left knee replacement, EGD, gastric bypass 12-18 in [place] (Dr. Neida Sadler resumed care of patient at 30 day luz). Past Anesthesia/Blood Transfusion Reactions: Previous Problems w/ Anesthesia Additional Past Anesthesia/Blood Transfusion Reaction / Comment(s): states "woke up choking with previous EGD" states "takes alot to put me to sleep" Past Psychological History: Depression Smoking Status: Never smoker Past Alcohol Use History: None Reported Past Drug Use History: None Reported - Past Family History Mother Family Medical History: No Reported History General Exam General appearance: alert Head exam: Present: atraumatic, normocephalic, normal inspection Eye exam: Present: normal appearance, PERRL, EOMI. Absent: scleral icterus, conjunctival injection, periorbital swelling ENT exam: Present: normal exam, mucous membranes moist Neck exam: Present: normal inspection, full ROM Respiratory exam: Present: normal lung sounds bilaterally. Absent: respiratory distress, wheezes, rales, rhonchi, stridor Cardiovascular Exam: Present: regular rate, normal rhythm, normal heart sounds. Absent: systolic murmur, diastolic murmur, rubs, gallop, clicks GI/Abdominal exam: Present: soft, tenderness (generalized abdominal pain), normal bowel sounds. Absent: distended, guarding, rebound, rigid Course Vital Signs 05/26/20 05/26/20 05/26/20 15:08 15:34 16:20 Temperature 97.9 F Pulse Rate 92 69 67 Respiratory 20 18 18 Rate Blood Pressure 151/107 151/90 118/79 O2 Sat by Pulse 100 100 100 Oximetry Medical Decision Making - Medical Decision Making Vitals are stable. Patient does have generalized abdominal tenderness. CBC CMP unremarkable. However patient does have lactic acidosis of 6.0. CT abdomen and pelvis did show mesenteric edema of uncertain etiology as well as partial small bowel obstruction. Concern obviously is for mesenteric ischemia at this time. Discussed case with Dr. Tovar who recommended we call patient's personal surgeon Dr. Sadler. She does accept this admission, requests 2 L of fluids which have been given as well as maintenance fluids. Patient will be kept nothi ng by mouth. - Lab Data Result diagrams: 05/26/20 15:34 05/26/20 16:14 Lab Results 05/26/20 05/26/20 05/26/20 Range/Units 15:34 15:34 16:14 WBC 9.1 (3.8-10.6) k/uL RBC 5.28 (3.80-5.40) m/uL Hgb 16.5 H (11.4-16.0) gm/dL Hct 47.7 H (34.0-46.0) % MCV 90.4 (80.0-100.0) fL MCH 31.3 (25.0-35.0) pg MCHC 34.7 (31.0-37.0) g/dL RDW 12.3 (11.5-15.5) % Plt Count 322 (150-450) k/uL MPV 7.3 Neutrophils % 70 % Lymphocytes % 24 % Monocytes % 4 % Eosinophils % 1 % Basophils % 0 % Neutrophils # 6.4 (1.3-7.7) k/uL Lymphocytes # 2.1 (1.0-4.8) k/uL Monocytes # 0.4 (0-1.0) k/uL Eosinophils # 0.1 (0-0.7) k/uL Basophils # 0.0 (0-0.2) k/uL Sodium 135 L (137-145) mmol/L Potassium 3.1 L (3.5-5.1) mmol/L Chloride 105 (98-107) mmol/L Carbon Dioxide 22 (22-30) mmol/L Anion Gap 8 mmol/L BUN 16 (7-17) mg/dL Creatinine 0.49 L (0.52-1.04) mg/dL Est GFR (CKD-EPI)AfAm >90 (>60 ml/min/1.73 sqM) Est GFR (CKD-EPI)NonAf >90 (>60 ml/min/1.73 sqM) Glucose 144 H (74-99) mg/dL Plasma Lactic Acid Marco A 6.0 H* (0.7-2.0) mmol/L Calcium 8.0 L (8.4-10.2) mg/dL Total Bilirubin 0.5 (0.2-1.3) mg/dL AST 28 (14-36) U/L ALT 19 (4-34) U/L Alkaline Phosphatase 47 (38-126) U/L Total Protein 5.3 L (6.3-8.2) g/dL Albumin 3.2 L (3.5-5.0) g/dL Amylase 49 (30-110) U/L Lipase 171 (23-300) U/L Urine Color Urine Appearance (Clear) Urine pH (5.0-8.0) Ur Specific Boody (1.001-1.035) Urine Protein (Negative) Urine Glucose (UA) (Negative) Urine Ketones (Negative) Urine Blood (Negative) Urine Nitrite (Negative) Urine Bilirubin (Negative) Urine Urobilinogen (<2.0) mg/dL Ur Leukocyte Esterase (Negative) 05/26/20 Range/Units 16:32 WBC (3.8-10.6) k/uL RBC (3.80-5.40) m/uL Hgb (11.4-16.0) gm/dL Hct (34.0-46.0) % MCV (80.0-100.0) fL MCH (25.0-35.0) pg MCHC (31.0-37.0) g/dL RDW (11.5-15.5) % Plt Count (150-450) k/uL MPV Neutrophils % % Lymphocytes % % Monocytes % % Eosinophils % % Basophils % % Neutrophils # (1.3-7.7) k/uL Lymphocytes # (1.0-4.8) k/uL Monocytes # (0-1.0) k/uL Eosinophils # (0-0.7) k/uL Basophils # (0-0.2) k/uL Sodium (137-145) mmol/L Potassium (3.5-5.1) mmol/L Chloride (98-107) mmol/L Carbon Dioxide (22-30) mmol/L Anion Gap mmol/L BUN (7-17) mg/dL Creatinine (0.52-1.04) mg/dL Est GFR (CKD-EPI)AfAm (>60 ml/min/1.73 sqM) Est GFR (CKD-EPI)NonAf (>60 ml/min/1.73 sqM) Glucose (74-99) mg/dL Plasma Lactic Acid Marco A (0.7-2.0) mmol/L Calcium (8.4-10.2) mg/dL Total Bilirubin (0.2-1.3) mg/dL AST (14-36) U/L ALT (4-34) U/L Alkaline Phosphatase (38-126) U/L Total Protein (6.3-8.2) g/dL Albumin (3.5-5.0) g/dL Amylase (30-110) U/L Lipase (23-300) U/L Urine Color Yellow Urine Appearance Clear (Clear) Urine pH 7.5 (5.0-8.0) Ur Specific Boody 1.050 H (1.001-1.035) Urine Protein Negative (Negative) Urine Glucose (UA) Negative (Negative) Urine Ketones 2+ H (Negative) Urine Blood Negative (Negative) Urine Nitrite Negative (Negative) Urine Bilirubin Negative (Negative) Urine Urobilinogen <2.0 (<2.0) mg/dL Ur Leukocyte Esterase Negative (Negative) Disposition Clinical Impression: Bowel obstruction, Lactic acidosis Disposition: ADMITTED IP TO THIS HOSP Is patient prescribed a controlled substance at d/c from ED?: No Referrals: Corbin Etienne MD [Primary Care Provider] - 1-2 days Time of Disposition: 17:28
--- NOTE | 2020-05-26 16:20 | CT ---
EXAMINATION TYPE: CT abdomen pelvis w con DATE OF EXAM: 05/26/2020 HISTORY: epigastric pain, nausea, vomiting, history of gastric bypass 2019 CT DLP: 692.9mGycm Automated Exposure Control for Dose Reduction was Utilized. CONTRAST: CT scan of the abdomen and pelvis is performed with IV Contrast, patient injected with 100 mL of Isov ue 300. COMPARISON: None. FINDINGS: LUNG BASES: Small pericardial effusion anterior-inferior aspect up to 14 mm in thickness on axial bradley ge 8. LIVER/GB: Cholecystectomy clips. PANCREAS: No significant abnormality is seen. SPLEEN: No significant abnormality is seen. ADRENALS: No significant abnormality is seen. KIDNEYS: Symmetric cortical medullary uptake and excretion without hydronephrosis seen bilaterally.. BOWEL: Suboptimal evaluation as there is only small amount of oral contrast and gastric remnant and p roximal small bowel loops in the upper abdomen. In addition patient has very little intra-abdominal f at. There is dilated distal esophagus with air-contrast level. Prominent fluid-filled small bowel loo ps with air-fluid levels are seen in the lower abdomen and pelvis. Fecal material is seen in nondiste nded colon along the periphery. There is small to moderate amount of mesenteric ascites layering fat planes in the left mid to lower abdomen completely surrounding small mesenteric vessels of uncertain etiology near aortic bifurcation for reference coronal image 45. Surgical sutures in the anterior mid abdomen are present. Difficult to track bowel loops with suggestion of small bowel feces sign. Slight swelling of mesenteric vessels on coronal images. UTERUS/ADNEXA: Anteverted uterus projects to right of midline. LYMPH NODES: No greater than 1cm abdominal or pelvic lymph nodes are appreciated. OSSEOUS STRUCTURES: No significant abnormality is seen. OTHER: No significant additional abnormality is seen. IMPRESSION: Suboptimal study. Moderate mesenteric edema of uncertain etiology. Overall nonspecific devin wel gas pattern. Cannot exclude partial distal small bowel obstruction. Progress study advised.
[2020-05-26 16:33] LABS: ALT 19 U/L (4-34); AST 28 U/L (14-36); African American GFR (CKD) >90 (>60 ml/min/1.73 sqM); Albumin 3.2 g/dL (3.5-5.0); Alkaline Phosphatase 47 U/L (38-126); Amylase 49 U/L (30-110); Anion Gap 8 mmol/L; Blood Urea Nitrogen 16 mg/dL (7-17); Carbon Dioxide 22 mmol/L (22-30); Chloride 105 mmol/L (98-107); Glucose 144 mg/dL (74-99); Lipase 171 U/L (23-300); Non-African American GFR(CKD) >90 (>60 ml/min/1.73 sqM); Potassium 3.1 mmol/L (3.5-5.1); Sodium 135 mmol/L (137-145); Total Bilirubin 0.5 mg/dL (0.2-1.3); Total Protein 5.3 g/dL (6.3-8.2)
[2020-05-26 16:40] LABS: Appearance,Urine Clear (Clear); Bilirubin,Urine Negative (Negative); Blood,Urine Negative (Negative); Color,Urine Yellow; Glucose,Urine (UA) Negative (Negative); Ketones,Urine 2+ (Negative); Leukocyte Esterase,Urine Negative (Negative); Nitrite,Urine Negative (Negative); PH, Urine 7.5 (5.0-8.0); Protein,Urine Negative (Negative); Urobilinogen,Urine <2.0 mg/dL (<2.0)
[2020-05-26] MEDS ORDERED: ONDANSETRON 4 MG/2 ML VIAL IVP PRN (17:26)
[2020-05-26] MEDS ORDERED: NALOXONE 0.4 MG/ML 1 ML VIAL IV PRN (17:26)
[2020-05-26] MEDS ORDERED: SODIUM CHLORIDE 0.9% 1,000 ML IV SCH (17:30)
[2020-05-26] MEDS: HYDROmorphone 0.5 MG/0.5 ML SYRINGE IVP PRN (17:31)
[2020-05-26] MEDS: 0.9% NACL WITH KCL 40 MEQ/L 1,000 ML IV SCH (22:47)
[2020-05-26] MEDS: LEVOTHYROXINE 75 MCG TAB PO SCH (23:55)
[2020-05-27 06:43] LABS: Basophils % (A) 0 %; Eosinophils # (A) 0.1 k/uL (0-0.7); Eosinophils % (A) 2 %; HCT 39.3 % (34.0-46.0); HGB 13.6 gm/dL (11.4-16.0); Lymphocytes # (A) 1.5 k/uL (1.0-4.8); Lymphocytes % (A) 29 %; MCH 31.6 pg (25.0-35.0); MCHC 34.7 g/dL (31.0-37.0); Mean Platelet Volume 7.6; Monocytes # (A) 0.3 k/uL (0-1.0); Monocytes % (A) 6 %; Neutrophils # (A) 3.3 k/uL (1.3-7.7); Neutrophils % (A) 62 %; Platelet Count 226 k/uL (150-450); RBC 4.31 m/uL (3.80-5.40); RDW 12.5 % (11.5-15.5); WBC 5.4 k/uL (3.8-10.6)
[2020-05-27 06:53] LABS: African American GFR (CKD) >90 (>60 ml/min/1.73 sqM); Anion Gap 6 mmol/L; Blood Urea Nitrogen 16 mg/dL (7-17); Calcium 8.6 mg/dL (8.4-10.2); Carbon Dioxide 26 mmol/L (22-30); Chloride 107 mmol/L (98-107); Glucose 81 mg/dL (74-99); Non-African American GFR(CKD) >90 (>60 ml/min/1.73 sqM); Potassium 3.9 mmol/L (3.5-5.1); Sodium 139 mmol/L (137-145)
[2020-05-27] MEDS: ENOXAPARIN 30 MG/0.3 ML SYRINGE SQ SCH ×2 (08:17→16:25)
[2020-05-27] MEDS: 0.9% NACL WITH KCL 40 MEQ/L 1,000 ML IV SCH ×2 (08:19→19:26)
[2020-05-27] MEDS: PANTOPRAZOLE 40 MG/10 ML VIAL IVP SCH (08:19)
[2020-05-27] MEDS: DULoxetine HCL 20 MG CAPSULE.DR PO SCH (08:20)
[2020-05-27] MEDS: ACETAMINOPHEN IV (For NPO) 650 MG in EMPTY BAG 1 BAG IVPB SCH ×4 (08:20→17:18)
--- NOTE | 2020-05-27 10:42 | P.GSHP ---
History of Present Illness H&P Date: 05/27/20 DATE OF SERVICE: 04/01/2019 CHIEF COMPLAINT: Status post gastric bypass HISTORY OF PRESENT ILLNESS: Teddy Worley is a 53-year-old female who is status post gastric bypass in [place], Feb 25, 2018. She is 2 years out. She reports the first time having severe abdominal cramps generalized yesterday. The pain was 10 out of 10 in intensity. She presented to the ER. Since admission, she reports generalized abdominal soreness has improved. She reports mild nausea. No recent passage of flatus. She also has known history of hiatal hernia. She also had a sister who had similar symptoms. She is admitted due to abnormal computed tomography scan of mesenteric edema and ischemia of the small bowel. At height of 5 feet 5 inches, her ideal body weight is 149 pounds. Her highest weight was 324 pounds. Her body mass index highest was 54.0. She comes in 144 pounds from 188 pounds, 6 months ago. She has lost 44 pounds in 6 months. Today her BMI is 24.0. She has lost 180 pounds lifetime. Lifetime percent excess weight loss is 103 %. PAST MEDICAL HISTORY: 1. Morbid obesity due to excess calories 2. Body mass index of 54.0, initial 3. Osteoarthritis of the knees. 4. Osteoarthritis of the lower back. 5. Hypertensive heart disease. 6. Gastroesophageal reflux disease 7. Depressive disorder 8. Obstructive sleep apnea PAST SURGICAL HISTORY: 1. Cholecystectomy 2. Gastric Bypass 3. Orthopedic procedure HOME MEDICATIONS: Home Medications Medication Instructions Recorded Confirmed Multivitamins, Thera [Multivitamin 1 tab PO DAILY 04/09/18 05/26/20 (formulary)] Vitamin A Acetate [Vitamin A] 10,000 unit SL DAILY 10/31/18 05/26/20 DULoxetine HCL [Cymbalta] 20 mg PO DAILY 05/26/20 05/26/20 L.acidoph,Paracasei, B.lactis 1 cap PO DAILY 05/26/20 05/26/20 [Probiotic] [place]-3 Fatty Acids [[place]-3] 1,000 mg PO DAILY 05/26/20 05/26/20 bisacodyL [Dulcolax] 10 mg PO BID PRN 05/26/20 05/26/20 Previous Rx's Medication Instructions Recorded Levothyroxine Sodium [Synthroid] 75 mcg PO DAILY #90 tab 10/01/18 Omeprazole 20 mg PO DAILY #30 cap 10/01/18 ALLERGIES: Allergies Allergy/AdvReac Type Severity Reaction Status Date / Time nickel Allergy Swelling Verified 05/26/20 16:10 Tetracyclines Allergy Rash/Hives Verified 05/26/20 16:10 steri strips Allergy blisters Uncoded 11/03/18 10:33 SOCIAL HISTORY: Past tobacco use. FAMILY HISTORY: No family history of ulcerative colitis disease or Crohn's disease. Family history of morbid obesity. No lupus in the family. No reports of stomach or esophageal cancer. REVIEW OF ORGAN SYSTEMS: CONSTITUTIONAL: At height of 5 feet 5 inches, her ideal body weight is 149 pounds. Her highest weight was 324 pounds. Her body mass index highest was 54.0. HEENT: Denies any active troubles with vision or hearing. No troubles with swallowing. ENDOCRINE: No diabetes. No hypothyroidism. CARDIOVASCULAR: No reports of palpitations or heart attacks or chest pain. RESPIRATORY: Has daytime somnolence. No asthma. GI: Denies any bright red blood per rectum. No diarrhea. Has constipation. MUSCULOSKELETAL: Has lower back pain and joint pain. Has osteoarthritis of the knees. NEURO: No headaches. No seizure disorders. PSYCH: Has depression. No suicidal ideation. RHEUMATOLOGIC: No lupus. No rheumatoid arthritis. HEMATOLOGIC: Denies any abnormal bleeding or bruising. No personal history of DVTs. SKIN: No rash. No skin cancer. PHYSICAL EXAM: VITAL SIGNS: Height 5 foot 5 inches, weight 140 pounds. BMI 23.3 Vital Signs Temp 98.9 F 05/27/20 02:05 Pulse 73 05/27/20 02:05 Resp 15 05/27/20 02:05 BP 116/56 05/27/20 02:05 Pulse Ox 98 05/27/20 02:05 Intake & Output 05/26/20 05/26/20 05/27/20 06:59 18:59 06:59 Weight 63.503 kg Other: Voiding Method Toilet # Voids 2 GENERAL: Well-developed in no acute distress. HEENT: No scleral icterus. Extraocular movements grossly intact. Hears conversational speech. No nasal drainage. NECK: Supple without lymphadenopathy. CHEST: Nonlabored respirations with equal bilateral excursions. CARDIOVASCULAR: Regular rate and regular rhythm. Distal 2+ pulses. ABDOMEN: Generalized abdominal tenderness. No abdominal wall hernias. MUSCULOSKELETAL: No clubbing, cyanosis. NEURO: No focal or lateralizing signs. Cranial nerves 2 through 12 grossly within normal limits. PSYCH: Appropriate affect. Alert and oriented to person, place and time. SKIN: Good skin turgor. Well perfused. STUDIES: CT of the abdomen and pelvis and appendix reviewed by me demonstrating mesenteric swirl consistent with internal hernia. No free air identified. Features of diverticulosis without diverticulitis identified. This is my independent interpretation. LABS: Reviewed. Initial lactic acid level over 6.0, abnormal and elevated. Repeat resolved. WBC normal on repeat. ASSESSMENT: 1. Mesenteric edema 2. Lactic acidosis 3. Generalized abdominal pain 4. Status post gastric bypass, 180+ pound weight loss 5. History of Morbid obesity due to excess calories 6. Body mass index of 54.0 to 24.0. 7. Osteoarthritis of the knees. 8. Osteoarthritis of the lower back 9. Hypertensive heart disease. 10. Gastroesophageal reflux disease 11. Depressive disorder 12. Obstructive sleep apnea 13. Iron deficiency anemia 14 Vitamin A deficiency 15 Chronic constipation 16. Hypothyroidism PLAN: 1. With her clinical history of gastric bypass including massive weight loss, she is at risk for internal hernia as evidenced by her computed tomography scan of the abdomen and pelvis. Recommend emergent diagnostic laparoscopy with lysis of adhesions and closure of internal hernia for mesenteric edema and small bowel ischemia. 2. Inpatient hospitalization described due to presentation of internal hernia with risk for bowel obstruction and mesenteric ischemia with small bowel ischemia 3. IV fluid hydration. Past Medical History Past Medical History: GERD/Reflux History of Any Multi-Drug Resistant Organisms: None Reported Past Surgical History: Bariatric Surgery, Cholecystectomy, Orthopedic Surgery Additional Past Surgical History / Comment(s): left knee replacement, EGD, gastric bypass 1-19 in [place] (Dr. Neida Sadler resumed care of patient at 30 day luz). Extra skin remove in August 2019. Past Anesthesia/Blood Transfusion Reactions: Previous Problems w/ Anesthesia Additional Past Anesthesia/Blood Transfusion Reaction / Comment(s): states "woke up choking with previous EGD" states "takes alot to put me to sleep", low blood pressure after surgery Past Psychological History: Depression Smoking Status: Never smoker Past Alcohol Use History: None Reported Past Drug Use History: None Reported - Past Family History Mother Family Medical History: No Reported History Medications and Allergies Home Medications Medication Instructions Recorded Confirmed Type Multivitamins, Thera [Multivitamin 1 tab PO DAILY 04/09/18 05/26/20 History (formulary)] Levothyroxine Sodium [Synthroid] 75 mcg PO DAILY #90 tab 10/01/18 05/26/20 Rx Omeprazole 20 mg PO DAILY #30 cap 10/01/18 05/26/20 Rx Vitamin A Acetate [Vitamin A] 10,000 unit SL DAILY 10/31/18 05/26/20 History DULoxetine HCL [Cymbalta] 20 mg PO DAILY 05/26/20 05/26/20 History L.acidoph,Paracasei, B.lactis 1 cap PO DAILY 05/26/20 05/26/20 History [Probiotic] [place]-3 Fatty Acids [[place]-3] 1,000 mg PO DAILY 05/26/20 05/26/20 History bisacodyL [Dulcolax] 10 mg PO BID PRN 05/26/20 05/26/20 History Allergies Allergy/AdvReac Type Severity Reaction Status Date / Time nickel Allergy Swelling Verified 05/26/20 16:10 Tetracyclines Allergy Rash/Hives Verified 05/26/20 16:10 steri strips Allergy blisters Uncoded 11/03/18 10:33 Surgical - Exam Vital Signs Temp Pulse Resp BP Pulse Ox 97.9 F 92 20 151/107 100 05/26/20 15:08 05/26/20 15:08 05/26/20 15:08 05/26/20 15:08 05/26/20 15:08 Results - Labs 05/27/20 06:25 05/27/20 06:25 Abnormal Lab Results - Last 24 Hours (Table) 05/26/20 05/26/20 05/26/20 Range/Units 15:34 15:34 16:14 Hgb 16.5 H (11.4-16.0) gm/dL Hct 47.7 H (34.0-46.0) % Sodium 135 L (137-145) mmol/L Potassium 3.1 L (3.5-5.1) mmol/L Creatinine 0.49 L (0.52-1.04) mg/dL Glucose 144 H (74-99) mg/dL Plasma Lactic Acid Marco A 6.0 H* (0.7-2.0) mmol/L Calcium 8.0 L (8.4-10.2) mg/dL Total Protein 5.3 L (6.3-8.2) g/dL Albumin 3.2 L (3.5-5.0) g/dL Ur Specific Elliott (1.001-1.035) Urine Ketones (Negative) 05/26/20 05/26/20 Range/Units 16:32 18:28 Hgb (11.4-16.0) gm/dL Hct (34.0-46.0) % Sodium (137-145) mmol/L Potassium (3.5-5.1) mmol/L Creatinine (0.52-1.04) mg/dL Glucose (74-99) mg/dL Plasma Lactic Acid Marco A 0.5 L (0.7-2.0) mmol/L Calcium (8.4-10.2) mg/dL Total Protein (6.3-8.2) g/dL Albumin (3.5-5.0) g/dL Ur Specific Elliott 1.050 H (1.001-1.035) Urine Ketones 2+ H (Negative) Diabetes panel 05/26/20 Range/Units 16:14 Sodium 135 L (137-145) mmol/L Potassium 3.1 L (3.5-5.1) mmol/L Chloride 105 (98-107) mmol/L Carbon Dioxide 22 (22-30) mmol/L BUN 16 (7-17) mg/dL Creatinine 0.49 L (0.52-1.04) mg/dL Glucose 144 H (74-99) mg/dL Calcium 8.0 L (8.4-10.2) mg/dL AST 28 (14-36) U/L ALT 19 (4-34) U/L Alkaline Phosphatase 47 (38-126) U/L Total Protein 5.3 L (6.3-8.2) g/dL Albumin 3.2 L (3.5-5.0) g/dL Calcium panel 05/26/20 Range/Units 16:14 Calcium 8.0 L (8.4-10.2) mg/dL Albumin 3.2 L (3.5-5.0) g/dL Pituitary panel 05/26/20 Range/Units 16:14 Sodium 135 L (137-145) mmol/L Potassium 3.1 L (3.5-5.1) mmol/L Chloride 105 (98-107) mmol/L Carbon Dioxide 22 (22-30) mmol/L BUN 16 (7-17) mg/dL Creatinine 0.49 L (0.52-1.04) mg/dL Glucose 144 H (74-99) mg/dL Calcium 8.0 L (8.4-10.2) mg/dL Adrenal panel 05/26/20 Range/Units 16:14 Sodium 135 L (137-145) mmol/L Potassium 3.1 L (3.5-5.1) mmol/L Chloride 105 (98-107) mmol/L Carbon Dioxide 22 (22-30) mmol/L BUN 16 (7-17) mg/dL Creatinine 0.49 L (0.52-1.04) mg/dL Glucose 144 H (74-99) mg/dL Calcium 8.0 L (8.4-10.2) mg/dL Total Bilirubin 0.5 (0.2-1.3) mg/dL AST 28 (14-36) U/L ALT 19 (4-34) U/L Alkaline Phosphatase 47 (38-126) U/L Total Protein 5.3 L (6.3-8.2) g/dL Albumin 3.2 L (3.5-5.0) g/dL Assessment and Plan (1) Internal hernia Current Visit: Yes Status: Acute Code(s): K45.8 - OTH ABDOMINAL HERNIA WITHOUT OBSTRUCTION OR GANGRENE SNOMED Code(s): 33376664 (2) Gastric bypass status for obesity Current Visit: Yes Status: Acute Code(s): Z98.84 - BARIATRIC SURGERY STATUS SNOMED Code(s): 493314287 (3) Small bowel ischemia Current Visit: Yes Status: Acute Code(s): K55.9 - VASCULAR DISORDER OF INTESTINE, UNSPECIFIED SNOMED Code(s): 18372358 (4) Mesenteric angina Current Visit: Yes Status: Acute Code(s): K55.1 - CHRONIC VASCULAR DISORDERS OF INTESTINE SNOMED Code(s): 992538237 (5) Bowel obstruction Current Visit: Yes Status: Acute Code(s): K56.609 - UNSP INTESTNL OBST, UNSP TO PARTIAL VERSUS COMPLETE OBST SNOMED Code(s): 24604074 (6) Lactic acidosis Current Visit: Yes Status: Acute Code(s): E87.2 - ACIDOSIS SNOMED Code(s): 00408668
[2020-05-27] MEDS ORDERED: IV FLUID CONTINUATION 1,000 ML IV ONE (15:41)
[2020-05-27] MEDS ORDERED: LIDOCAINE 1% INJ 10MG/ML (20 ML MDV) ONE ×2 (16:10→16:46)
[2020-05-27] MEDS ORDERED: LIDOCAINE 1%-EPI 1:100,000 20 ML VIAL ONE (16:46)
[2020-05-27] MEDS ORDERED: NEOSTIGMINE 1 MG/ML 10 ML VIAL ONE (16:46)
[2020-05-27] MEDS ORDERED: ROPIVACAINE 5 MG/ML 30 ML VIAL ONE (16:46)
[2020-05-27] MEDS ORDERED: SUCCINYLCHOLINE CHLORIDE 100 MG/5 ML SYR IV ONE (16:46)
[2020-05-27] MEDS ORDERED: GLYCOPYRROLATE 0.2 MG/ML 2 ML VIAL ONE (16:46)
[2020-05-27] MEDS ORDERED: fentaNYL (PF) 50 MCG/ML 2 ML AMP ONE (16:46)
[2020-05-27] MEDS ORDERED: ROCURONIUM 10 MG/ML (5 ML VIAL) IV ONE (16:46)
[2020-05-27] MEDS ORDERED: PROPOFOL 10 MG/ML 20 ML VIAL IV ONE (16:46)
[2020-05-27] MEDS ORDERED: LACTATED RINGERS 1,000 ML IV ONE (16:49)
[2020-05-27] MEDS ORDERED: LIDOCAINE 1%-EPI 1:100,000 20 ML VIAL SQ ONE ×2 (17:20→17:24)
--- NOTE | 2020-05-27 19:06 | P.OP ---
Date of Procedure: 05/27/20 Description of Procedure: SURGEON: ISAIAS CISNEROS MD PREOPERATIVE DIAGNOSES: 1. Abnormal computed tomography scan with mesenteric and small bowel ischemia 2. History of gastric bypass 3. Lactic acidosis 4. Generalized abdominal pain POSTOPERATIVE DIAGNOSES: 1. Sigmoid volvulus 2. Internal hernia, Maravilla's defect 3. History of gastric bypass 4. Chyle ascites 5. Lactic acidosis 6. Generalized abdominal pain OPERATION: 1. Robotic-assisted da Perla Xi laparoscopic with lysis of adhesions 2. Reduction of internal hernia and sigmoid volvulus 3. Closure of internal hernia, Maravilla's defect ESTIMATED BLOOD LOSS: 5 mL. SPECIMENS REMOVED: None. COMPLICATIONS: None. OPERATIVE FINDINGS: 1. No ventral hernias identified. 2. Turbid chylous ascites 3. Internal hernia Maravilla defect repaired 4. Active sigmoid volvulus towards right upper quadrant involving torsion of small bowel mesentery 5. Adhesive band disease right upper quadrant resected 6. Jejunojejunostomy mesenteric defect scarred INDICATIONS: The patient is a 54-year-old female who presents with acute onset generalized abdominal pain including lactic acidosis and an abnormal computed tomography scan consistent with mesenteric edema and small bowel ischemia. She has history of gastric bypass with successful weight loss of 180 pounds to normal weight 2 years ago. With her clinical presentation, internal hernia with repair was described. Surgical intervention with diagnostic laparoscopy, lysis of adhesions were described. Informed consent was obtained. Robotic assisted laparoscopic approach was described. Benefits and risks of the procedure including but not limited to bleeding, infection, injury to the small bowel was described. Informed consent was obtained. DESCRIPTION OF PROCEDURE: Patient was brought to the operating room, placed in supine position. After general induction, the abdomen had been prepped and draped in standard sterile fashion. The robotic da Perla XI system was primed. After a timeout protocol was performed, the patient had been prepped and draped in standard sterile fashion. The robot was docked along the right lateral abdomen. The patient was repositioned in with right side up. Please note prior to docking of the robot; however, a 5 mm 0 degrees laparoscopic trocar entry was performed along the left upper quadrant. The abdomen was insufflated to 15 mmHg pressure which she tolerated well. Diagnostic laparoscopy was performed. Next, three 8 mm robotic ports were placed along the right lateral abdominal wall. The 5-mm trocar was exchanged for a 12 mm port. Instruments including graspers and vessel sealer were interchanged by the as peter. I had sat at the console. At the right upper quadrant, an adhesive band of the greater omentum to abdominal wall was identified tethering the proximal transverse colon to the abdominal wall. No evidence of incisional hernias were found. A white chylous ascites was identified with turbid appearance. The small bowel including colon were viable. The sigmoid colon was highly redundant with an active volvulus coursing to the right upper quadrant and involving the distal small bowel. Additionally a separate internal hernia was identified at the transverse colon of the Maravilla's defect. The small bowel was investigated starting from the ascending colon towards the terminal ileum and proximally to the jejunojejunostomy and Ava limb including gastrojejunostomy. The sigmoid vol vulus was carefully reduced. The sigmoid was placed within the pelvis. The small bowel was reduced with a small bowel volvulus also removed from the Maravilla's defect internal hernia. The jejunojejunostomy defect was completely scarred. An active hiatal hernia at the gastrojejunostomy was found at least over 4 cm. As the internal hernias were reduced as well as the sigmoid volvulus, attention was brought to closure of the Maravilla's defect. Using a 2- 0 VLOC the Maravilla's defect was closed using the mesentery of the jejunum to the transverse mesocolon. A final inspection from proximal to distal gastrojejunostomy to the small bowel and cecum was performed. The abdomen was dried of the chylous ascites. The small bowel was viable.The robot was undocked. All pneumoperitoneum instruments were evacuated from the abdominal cavity. The incisions were reapproximated using 4-0 Monocryl in an interrupted subcuticular fashion. Please note along the trocar sites, local anesthetic was placed as a field block prior to insertion of all instruments. Exofin was applied to the skin. At the end of the procedure needle, sponge, and instrument count had been verified correct by the surgical instrument technician. The patient was transferred to postanesthesia care unit in stable condition.
[2020-05-27] MEDS: HYDROmorphone 0.5 MG/0.5 ML SYRINGE IVP PRN (21:29)
[2020-05-28] MEDS: ACETAMINOPHEN IV (For NPO) 650 MG in EMPTY BAG 1 BAG IVPB SCH (00:03)
[2020-05-28] MEDS: 0.9% NACL WITH KCL 40 MEQ/L 1,000 ML IV SCH (04:59)
[2020-05-28] MEDS: LEVOTHYROXINE 75 MCG TAB PO SCH (05:16)
[2020-05-28] MEDS: DULoxetine HCL 20 MG CAPSULE.DR PO SCH (07:21)
[2020-05-28] MEDS: PANTOPRAZOLE 40 MG/10 ML VIAL IVP SCH (07:22)
[2020-05-28 07:57] VITALS: RESP 16; TEMP 98.2
[2020-05-28] MEDS ORDERED: ACETAMINOPHEN TAB 500 MG TAB PO SCH (10:33)
[2020-05-28 11:24] LABS: Basophils # (A) 0.01 X 10*3/uL (0.00-0.10); Basophils % (A) 0.1 %; Eosinophils # (A) 0.09 X 10*3/uL (0.04-0.35); Eosinophils % (A) 1.2 %; HCT 39.6 % (37.2-46.3); HGB 12.2 g/dL (12.0-15.0); MCHC 30.8 g/dL (32.0-37.0); MCV 97.3 fL (80.0-97.0); Mean Platelet Volume 9.4 fL (9.5-12.2); Monocytes % (A) 6.8 %; Neutrophils # (A) 4.79 X 10*3/uL (1.80-7.70); Neutrophils % (A) 65.6 %; Platelet Count 203 X 10*3/uL (140-440); RBC 4.07 X 10*6/uL (4.10-5.20); RDW 12.8 % (11.5-14.5); WBC 7.31 X 10*3/uL (4.50-10.00)
[2020-05-28] MEDS: SIMETHICONE 40 MG/0.6 ML DROPS 2,000 MG/30 ML BOTTLE PO SCH ×2 (11:47→12:59)
[2020-05-28 14:44] VITALS: BP 127/73; PULSE 75
--- NOTE | 2020-05-28 14:54 | P.DS ---
Providers Date of admission: 05/26/20 17:26 Expected date of discharge: 05/28/20 Attending physician: Neida Sadler Consults: 05/27/20 06:09 Consult Physician Routine Consulting Provider: [facility] Consult Reason/Comments: [facility] Do you want consulting provider notified?: Yes Primary care physician: Corbin Etienne - Discharge Diagnosis(es) (1) Internal hernia Current Visit: Yes Status: Acute (2) Gastric bypass status for obesity Current Visit: Yes Status: Acute (3) Small bowel ischemia Current Visit: Yes Status: Acute (4) Mesenteric angina Current Visit: Yes Status: Acute (5) Bowel obstruction Current Visit: Yes Status: Acute (6) Lactic acidosis Current Visit: Yes Status: Acute (7) Sigmoid volvulus Current Visit: Yes Status: Acute (8) Large bowel ischemia Current Visit: Yes Status: Acute (9) Chylous ascites Current Visit: Yes Status: Acute Hospital Course: POSTOPERATIVE DIAGNOSES: 1. Sigmoid volvulus 2. Internal hernia, Maravilla's defect 3. History of gastric bypass 4. Chyle ascites 5. Lactic acidosis 6. Generalized abdominal pain COURSE: The patient is a 54-year-old female who presented with acute onset generalized abdominal pain including lactic acidosis and an abnormal computed tomography scan consistent with mesenteric edema and small bowel ischemia. She has history of gastric bypass with successful weight loss of 180 pounds to normal weight 2 years ago. With her clinical presentation, internal hernia with repair was described. Surgical intervention with diagnostic laparoscopy, lysis of adhesions were described. She underwent robotic lysis of adhesions including reduction of sigmoid volvulus with closure of internal hernia and lysis of adhesions. Postoperatively, she was tolerating diet. Her abdominal pain had resolved. Intraoperative images were reviewed in detail. Discharge instructions were reviewed. PHYSICAL EXAM: VITAL SIGNS: Height 5 foot 5 inches, weight 140 pounds. BMI 23.3 GENERAL: Well-developed in no acute distress. HEENT: No scleral icterus. Extraocular movements grossly intact. Hears conversational speech. No nasal drainage. NECK: Supple without lymphadenopathy. CHEST: Nonlabored respirations with equal bilateral excursions. CARDIOVASCULAR: Regular rate and regular rhythm. Distal 2+ pulses. ABDOMEN: Incisions clean dry and intact MUSCULOSKELETAL: No clubbing, cyanosis. NEURO: No focal or lateralizing signs. Cranial nerves 2 through 12 grossly within normal limits. PSYCH: Appropriate affect. Alert and oriented to person, place and time. SKIN: Good skin turgor. Well perfused. LABS: Reviewed. Lactic acidosis resolved PLAN: 1. Findings of sigmoid volvulus were described including volvulus around the small bowel. Will likely need surgical intervention the future. 2. Laxatives described for chronic constipation. 3. Stable for discharge Vital Signs Temp 98.2 F 05/28/20 14:00 Pulse 75 05/28/20 14:00 Resp 16 05/28/20 14:00 BP 127/73 05/28/20 14:00 Pulse Ox 98 05/28/20 14:00 Intake & Output 05/27/20 05/28/20 05/28/20 18:59 06:59 18:59 Intake Total 1050 200 Output Total 5 Balance 1045 200 Intake: IV 1050 200 Output: Estimated Blood Loss 5 Other: Voiding Method Toilet Toilet # Voids 2 2 Laboratory Last Values WBC 7.31 X 10*3/uL (4.50-10.00) 05/28/20 07:45 RBC 4.07 X 10*6/uL (4.10-5.20) L 05/28/20 07:45 Hgb 12.2 g/dL (12.0-15.0) 05/28/20 07:45 Hct 39.6 % (37.2-46.3) 05/28/20 07:45 MCV 97.3 fL (80.0-97.0) H 05/28/20 07:45 MCH 30.0 pg (27.0-32.0) 05/28/20 07:45 MCHC 30.8 g/dL (32.0-37.0) L 05/28/20 07:45 RDW 12.8 % (11.5-14.5) 05/28/20 07:45 Plt Count 203 X 10*3/uL (140-440) 05/28/20 07:45 MPV 9.4 fL (9.5-12.2) L 05/28/20 07:45 Immature Gran % (Auto) 0.3 % 05/28/20 07:45 Absolute Nucleated RBC 0 X 10*3/uL (0.00-0.00) 05/28/20 07:45 Neutrophils % 65.6 % 05/28/20 07:45 Lymphocytes % 26.0 % 05/28/20 07:45 Monocytes % 6.8 % 05/28/20 07:45 Eosinophils % 1.2 % 05/28/20 07:45 Basophils % 0.1 % 05/28/20 07:45 Immature Gran # 0.02 X 10*3/uL (0.00-0.04) 05/28/20 07:45 Neutrophils # 4.79 X 10*3/uL (1.80-7.70) 05/28/20 07:45 Lymphocytes # 1.90 X 10*3/uL (0.90-5.00) 05/28/20 07:45 Monocytes # 0.50 X 10*3/uL (0.20-1.00) 05/28/20 07:45 Eosinophils # 0.09 X 10*3/uL (0.04-0.35) 05/28/20 07:45 Basophils # 0.01 X 10*3/uL (0.00-0.10) 05/28/20 07:45 NRBC/100 WBC Diff 0 /100 WBCS (0.0-0.0) 05/28/20 07:45 Sodium 139 mmol/L (137-145) 05/27/20 06:25 Potassium 3.9 mmol/L (3.5-5.1) 05/27/20 06:25 Chloride 107 mmol/L (98-107) 05/27/20 06:25 Carbon Dioxide 26 mmol/L (22-30) 05/27/20 06:25 Anion Gap 6 mmol/L 05/27/20 06:25 BUN 16 mg/dL (7-17) 05/27/20 06:25 Creatinine 0.55 mg/dL (0.52-1.04) 05/27/20 06:25 Est GFR (CKD-EPI)AfAm >90 (>60 ml/min/1.73 sqM) 05/27/20 06:25 Est GFR (CKD-EPI)NonAf >90 (>60 ml/min/1.73 sqM) 05/27/20 06:25 Glucose 81 mg/dL (74-99) 05/27/20 06:25 Lactic Ac Sepsis Rflx Y 05/26/20 16:02 Plasma Lactic Acid Marco A 0.5 mmol/L (0.7-2.0) L 05/26/20 18:28 Calcium 8.6 mg/dL (8.4-10.2) 05/27/20 06:25 Total Bilirubin 0.5 mg/dL (0.2-1.3) 05/26/20 16:14 AST 28 U/L (14-36) 05/26/20 16:14 ALT 19 U/L (4-34) 05/26/20 16:14 Alkaline Phosphatase 47 U/L (38-126) 05/26/20 16:14 Total Protein 5.3 g/dL (6.3-8.2) L 05/26/20 16:14 Albumin 3.2 g/dL (3.5-5.0) L 05/26/20 16:14 Amylase 49 U/L (30-110) 05/26/20 16:14 Lipase 171 U/L (23-300) 05/26/20 16:14 Urine Color Yellow 05/26/20 16:32 Urine Appearance Clear (Clear) 05/26/20 16:32 Urine pH 7.5 (5.0-8.0) 05/26/20 16:32 Ur Specific [place] 1.050 (1.001-1.035) H 05/26/20 16:32 Urine Protein Negative (Negative) 05/26/20 16:32 Urine Glucose (UA) Negative (Negative) 05/26/20 16:32 Urine Ketones 2+ (Negative) H 05/26/20 16:32 Urine Blood Negative (Negative) 05/26/20 16:32 Urine Nitrite Negative (Negative) 05/26/20 16:32 Urine Bilirubin Negative (Negative) 05/26/20 16:32 Urine Urobilinogen <2.0 mg/dL (<2.0) 05/26/20 16:32 Ur Leukocyte Esterase Negative (Negative) 05/26/20 16:32 Coronavirus (PCR) Not Detected (Not Detectd) 05/26/20 17:52 Procedures: OPERATION: 1. Robotic-assisted da Perla Xi laparoscopic with lysis of adhesions 2. Reduction of internal hernia and sigmoid volvulus 3. Closure of internal hernia, Maravilla's defect ESTIMATED BLOOD LOSS: 5 mL. SPECIMENS REMOVED: None. COMPLICATIONS: None. OPERATIVE FINDINGS: 1. No ventral hernias identified. 2. Turbid chylous ascites 3. Internal hernia Maravilla defect repaired 4. Active sigmoid volvulus towards right upper quadrant involving torsion of small bowel mesentery 5. Adhesive band disease right upper quadrant resected 6. Jejunojejunostomy mesenteric defect scarred Patient Condition at Discharge: Good Plan - Discharge Summary Discharge Rx Participant: Yes New Discharge Prescriptions: New Lactulose [Cephulac] 10 gm PO BID #400 ml bisacodyL [Dulcolax] 5 mg PO DAILY PRN #10 tablet. PRN Reason: Constipation Simethicone 40 mg/0.6 ml Drops [Mylicon Drops] 40 mg PO PCHS PRN #30 ml PRN Reason: Gas Acetaminophen Tab [Tylenol Tab] 1,000 mg PO Q6HR PRN #30 tablet PRN Reason: Pain Omeprazole [PriLOSEC] 40 mg PO DAILY #30 capsule. Ondansetron Odt [Zofran Odt] 4 mg PO Q8HR PRN #9 tab PRN Reason: Nausea Continue Levothyroxine Sodium [Synthroid] 75 mcg PO DAILY #90 tab L.acidoph,Paracasei, B.lactis [Probiotic] 1 cap PO DAILY DULoxetine HCL [Cymbalta] 20 mg PO DAILY Discontinued Multivitamins, Thera [Multivitamin (formulary)] 1 tab PO DAILY Omeprazole 20 mg PO DAILY #30 cap Vitamin A Acetate [Vitamin A] 10,000 unit SL DAILY bisacodyL [Dulcolax] 10 mg PO BID PRN PRN Reason: Constipation [place]-3 Fatty Acids [[place]-3] 1,000 mg PO DAILY Discharge Medication List Levothyroxine Sodium [Synthroid] 75 mcg PO DAILY #90 tab 10/01/18 [Rx] DULoxetine HCL [Cymbalta] 20 mg PO DAILY 05/26/20 [History] L.acidoph,Paracasei, B.lactis [Probiotic] 1 cap PO DAILY 05/26/20 [History] Acetaminophen Tab [Tylenol Tab] 1,000 mg PO Q6HR PRN #30 tablet 05/28/20 [Rx] Lactulose [Cephulac] 10 gm PO BID #400 ml 05/28/20 [Rx] Omeprazole [PriLOSEC] 40 mg PO DAILY #30 capsule. 05/28/20 [Rx] Ondansetron Odt [Zofran Odt] 4 mg PO Q8HR PRN #9 tab 05/28/20 [Rx] Simethicone 40 mg/0.6 ml Drops [Mylicon Drops] 40 mg PO PCHS PRN #30 ml 05/28/20 [Rx] bisacodyL [Dulcolax] 5 mg PO DAILY PRN #10 tablet. 05/28/20 [Rx] Follow up Appointment(s)/Referral(s): Corbin Etienne MD [Primary Care Provider] - 1-2 days Bariatric [place], [place] [NON-STAFF] - 06/01/20 Patient Instructions/Handouts: Lysis of Abdominal Adhesions (IP) Activity/Diet/Wound Care/Special Instructions: No lifting over 10 pounds in 2 weeks until June 10. May shower. No bath tub soaks for two weeks until June 10. Diet as tolerated. Use Tylenol, simethicone scheduled for the next 24-48 hours for best pain relief. Use ice along incisions for today to prevent swelling. Discharge Disposition: HOME SELF-CARE
--- NOTE | 2020-05-31 08:27 | P.ANPRN ---
Procedure Note - Anesthesia - Nerve Block Performed Bilateral Erector Spinae Single Time Out Performed: Yes Date of Procedure: 05/27/20 Procedure Start Time: 16:10 Procedure Stop Time: 16:16 Location of Patient: PreOp Indication: Acute Post-Operative Pain, Requested by Surgeon Sedation Type: Sedate with meaningful contact maintained Preparation: Sterile Prep Position: Prone Needle Types: Pajunk Needle Gauge: 21 Ultrasound used to visualize needle placement: Yes Ultrasound used to observe medication spread: Yes Blood Aspirated: No Pain Paresthesia on Injection Noted: No Resistance on Injection: Normal Image Stored and Saved: Yes Events: Uneventful and Well Tolerated (ropi .5% 15cc plus xylo 1% with epi 15cc)
== END 2020-05-28 16:10 | disposition home or self-care (01) | DRG 345 ==
LOC: EC 14:55 → 4SSUR 17:26
PROVIDERS: ADMIT Surgery Plastic and Reconstructive Surgery; ATTEND Surgery Plastic and Reconstructive Surgery
PROC: 8E0W4CZ Robotic Assisted Procedure of Trunk Region, Percutaneous Endoscopic Approach (ICD-10-PCS; 2020-05-27)
PROC: 0DSN4ZZ Reposition Sigmoid Colon, Percutaneous Endoscopic Approach (ICD-10-PCS; principal; 2020-05-27 08:45)
PROC: 0DQV4ZZ Repair Mesentery, Percutaneous Endoscopic Approach (ICD-10-PCS; 2020-05-27 13:10)
DX: K56.2 Volvulus (principal); E87.2 Acidosis; Z68.43 Body mass index [BMI] 50.0-59.9, adult; R18.8 Other ascites; K46.9 Unspecified abdominal hernia without obstruction or gangrene; K21.9 Gastro-esophageal reflux disease without esophagitis; I11.9 Hypertensive heart disease without heart failure; Z20.822 Contact with and (suspected) exposure to COVID-19; D50.9 Iron deficiency anemia, unspecified; E50.9 Vitamin A deficiency, unspecified; G47.33 Obstructive sleep apnea (adult) (pediatric); E03.9 Hypothyroidism, unspecified; M17.0 Bilateral primary osteoarthritis of knee; M47.9 Spondylosis, unspecified; F32.9 Major depressive disorder, single episode, unspecified; Z98.84 Bariatric surgery status; Z90.49 Acquired absence of other specified parts of digestive tract; Z96.652 Presence of left artificial knee joint; Z88.1 Allergy status to other antibiotic agents; Z88.8 Allergy status to other drugs, medicaments and biological substances; Z91.048 Other nonmedicinal substance allergy status; Z79.899 Other long term (current) drug therapy; Z79.890 Hormone replacement therapy; Z87.891 Personal history of nicotine dependence; E66.01 Morbid (severe) obesity due to excess calories; K59.09 Other constipation; I89.8 Other specified noninfective disorders of lymphatic vessels and lymph nodes
CPT/HCPCS: 36410; 36415; 64999; 74177; 76937; 80048; 80053; 81003; 82150; 83605; 83690; 85025; 87635; 96361; 96374; 99285

== ENCOUNTER → 2020-06-01 | Outpatient (CLI) | payer OTHER ==
--- NOTE | 2020-06-01 15:52 | P.PN ---
Subjective Progress Note Date: 06/01/20 DATE OF SERVICE: 06/01/2020 CHIEF COMPLAINT: Bowel obstruction HISTORY OF PRESENT ILLNESS: Teddy Worley is a 54-year-old female who is status post gastric bypass in [place], Feb 25, 2018. She is 2 years out. She is status post reduction of internal hernia, 05/27/20. She is POD 5. She reports her prior abdominal pain is now resolved. She has personal history of polyps and diverticulosis. Her last colonoscopy was 7 years ago, and she is overdue. She reports chronic constipation and takes multiple laxatives as a result. At height of 5 feet 5 inches, her ideal body weight is 149 pounds. Her highest weight was 324 pounds. Her body mass index highest was 54.0. She comes in 144 pounds unchanged from 1 year ago. Today her BMI is 24.0. She has lost 180 pounds lifetime. Lifetime percent excess weight loss is 103 %. PHYSICAL EXAM: VITAL SIGNS: Height 5 foot 5 inches, weight 144 pounds. BMI 24.0 Vital Signs Temp 97.8 F 06/01/20 14:33 Pulse 65 06/01/20 14:33 Resp 16 06/01/20 14:33 BP 132/79 06/01/20 14:33 Pulse Ox GENERAL: Well-developed in no acute distress. HEENT: No scleral icterus. Extraocular movements grossly intact. Hears conversational speech. No nasal drainage. NECK: Supple without lymphadenopathy. CHEST: Nonlabored respirations with equal bilateral excursions. CARDIOVASCULAR: Regular rate and regular rhythm. Distal 2+ pulses. ABDOMEN: Incisions are clean, dry and intact. MUSCULOSKELETAL: No clubbing, cyanosis. NEURO: No focal or lateralizing signs. Cranial nerves 2 through 12 grossly within normal limits. PSYCH: Appropriate affect. Alert and oriented to person, place and time. SKIN: Good skin turgor. Well perfused. LABS: Hgb is elevated. Calcium is elevated. Selenium is elevated. ASSESSMENT: 1. Morbid obesity due to excess calories 2. Body mass index of 54.0 to 24.0. 3. Osteoarthritis of the knees. 4. Osteoarthritis of the lower back 5. Hypertensive heart disease. 6. Gastroesophageal reflux disease 7. Depressive disorder 8. Obstructive sleep apnea 9. Iron deficiency anemia 10. Vitamin A deficiency 11. Chronic constipation 12. Dietary surveillance and counseling 13. Hypothyroidism 14. Elevated selenium. PLAN: 1. She has chronic constipation with personal history of colon polyps and diverticulosis, recommend colonoscopy. 2. May need colectomy for history of sigmoid volvulus. Objective - Vital Signs Vital signs: Vital Signs Temp 97.8 F 06/01/20 14:33 Pulse 65 06/01/20 14:33 Resp 16 06/01/20 14:33 BP 132/79 06/01/20 14:33 Pulse Ox Intake & Output 05/31/20 06/01/20 06/01/20 18:59 06:59 18:59 Weight 65.317 kg
== END ==
CPT/HCPCS: 99211

== ENCOUNTER 2020-06-08 07:16 | Day surgery (SDC) | payer OTHER ==
[2020-06-06 10:17] VITALS: BMI 23.9
[~2020-06-08 07:16] MED LIST changes: +DEXAMETHASONE SOD PHOSPHATE 4 MG/ML 1 ML VIAL IV ONE; +HYDROmorphone 0.5 MG/0.5 ML SYRINGE IVP PRN; -LACTATED RINGERS 1,000 ML IV SCH; +LIDOCAINE 1% (10MG/ML) FOR IV START INTRADERMA PRN; -LIDOCAINE 1% 20 ML VIAL (10MG/ML) FOR IV START INTRADERMA PRN; +MIDAZOLAM 2 MG/2 ML VIAL IV PRN
--- NOTE | 2020-06-08 07:37 | P.GSHP ---
History of Present Illness H&P Date: 06/08/20 CHIEF COMPLAINT: Colon screen HISTORY OF PRESENT ILLNESS: The patient is a 54-year-old female who presents for colon screen. Lower endoscopy was offered for further evaluation and management. PAST MEDICAL HISTORY: Please see list. PAST SURGICAL HISTORY: Please see list. MEDICATIONS: Please see list. ALLERGIES: Please see list. SOCIAL HISTORY: No illicit drug use FAMILY HISTORY: No reports of Crohn disease or ulcerative colitis. REVIEW OF ORGAN SYSTEMS: CONSTITUTIONAL: No reports of fevers or chills. PHYSICAL EXAM: VITAL SIGNS: Stable GENERAL: Well-developed pleasant in no acute distress. HEENT: No scleral icterus. Extraocular movements grossly intact. Moist buccal mucosa. NECK: Supple without lymphadenopathy. CHEST: Unlabored respirations. Equal bilateral excursions. CARDIOVASCULAR: Regular rate and rhythm. Distal 2+ pulses. ABDOMEN: Soft, nontender, nondistended. MUSCULOSKELETAL: No clubbing, cyanosis, or edema. ASSESSMENT: 1. Colon screen. PLAN: 1. Recommend proceeding with a lower endoscopy Past Medical History Past Medical History: GERD/Reflux History of Any Multi-Drug Resistant Organisms: None Reported Past Surgical History: Bariatric Surgery, Cholecystectomy, Hernia Repair, Orthopedic Surgery Additional Past Surgical History / Comment(s): left knee replacement, EGD, gastric bypass 1-19 in [place] (Dr. Neida Sadler resumed care of patient at 30 day luz). Extra skin remove in August 2019. Hernia Repair and lysis of adhesions Past Anesthesia/Blood Transfusion Reactions: Previous Problems w/ Anesthesia Additional Past Anesthesia/Blood Transfusion Reaction / Comment(s): states "woke up choking with previous EGD" states "takes alot to put me to sleep", low blood pressure after surgery Smoking Status: Never smoker - Past Family History Mother Family Medical History: No Reported History Medications and Allergies Home Medications Medication Instructions Recorded Confirmed Type DULoxetine HCL [Cymbalta] 20 mg PO QAM 05/26/20 06/06/20 History L.acidoph,Paracasei, B.lactis 1 cap PO DAILY 05/26/20 06/06/20 History [Probiotic] Acetaminophen Tab [Tylenol Tab] 1,000 mg PO Q6HR PRN #30 tablet 05/28/20 06/06/20 Rx Lactulose [Cephulac] 10 gm PO BID #400 ml 05/28/20 06/06/20 Rx Ondansetron Odt [Zofran Odt] 4 mg PO Q8HR PRN #9 tab 05/28/20 06/06/20 Rx Simethicone 40 mg/0.6 ml Drops 40 mg PO PCHS PRN #30 ml 05/28/20 06/06/20 Rx [Mylicon Drops] bisacodyL [Dulcolax] 5 mg PO DAILY PRN #10 tablet. 05/28/20 06/06/20 Rx Levothyroxine Sodium [Synthroid] 75 mcg PO QAM 06/06/20 06/06/20 History Omeprazole [PriLOSEC] 40 mg PO QAM 06/06/20 06/06/20 History Polyethylene Glycol 3350 [Miralax] 17 gm PO DAILY 06/06/20 06/06/20 History Allergies Allergy/AdvReac Type Severity Reaction Status Date / Time nickel Allergy Swelling Verified 06/06/20 10:08 Tetracyclines Allergy Rash/Hives Verified 06/06/20 10:08 steri strips Allergy blisters Uncoded 06/06/20 10:08
[2020-06-08 07:43] VITALS: TEMP 97.9
[2020-06-08] MEDS: LACTATED RINGERS 1,000 ML IV SCH ×2 (07:43→07:59)
[2020-06-08] MEDS ORDERED: PROPOFOL 10 MG/ML 20 ML VIAL IV ONE (08:01)
--- NOTE | 2020-06-08 08:28 | P.PCN ---
Date of Procedure: 06/08/20 Description of Procedure: PREOPERATIVE DIAGNOSIS: Diverticulosis POSTOPERATIVE DIAGNOSIS: Sigmoid volvulus History of colon ischemia OPERATION: Colonoscopy to the ascending colon SURGEON: Neida Sadler MD. ANESTHESIA: MAC. INDICATIONS: The patient is a 54-year-old female who presents with colon ischemia and sigmoid volvulus and questionable history of diverticulosis with diverticulitis. Benefits and risks were described and informed consent was obtained. DESCRIPTION OF PROCEDURE: The patient had undergone Sutab prep. The patient had been brought into the operating room and laid in the left lateral decubitus position. After adequate intravenous sedation, the rectum was examined with 2% lidocaine jelly. External hemorrhoids were encountered. The rectal tone was within normal limits. No lesions were palpated in the rectal vault. An Olympus colonoscope was advanced until the cecum, ileocecal valve and appendiceal orifice were clearly viewed. The prep was fair. No scattered diverticulosis was encountered. No colonic polyps were found distal to the ascending colon. The sigmoid colon was highly redundant with history of sigmoid volvulus. No evidence of focal colitis was found. Retroflexion of the scope demonstrated grade 2 internal hemorrhoids without active bleeding or inflammation. The colon was desufflated. The patient had tolerated the procedure well. Withdrawal time was over 6 minutes. FINDINGS: Aronchick preparation quality scale 3 (1-5) Internal hemorrhoids, grade 1 External prolapsed hemorrhoids, grade 2 No arteriovenous malformations. No adenomatous polyps. No focal colitis. Highly redundant sigmoid colon with sigmoid volvulus without active ischemia RECOMMENDATIONS: Lower endoscopy in 10 years, 2030 Plan - Discharge Summary Discharge Rx Participant: No New Discharge Prescriptions: Continue bisacodyL [Dulcolax] 5 mg PO DAILY PRN #10 tablet.dr PRN Reason: Constipation Simethicone 40 mg/0.6 ml Drops [Mylicon Drops] 40 mg PO PCHS PRN #30 ml PRN Reason: Gas Acetaminophen Tab [Tylenol] 1,000 mg PO Q6HR PRN #30 tablet PRN Reason: Pain Omeprazole [PriLOSEC] 40 mg PO QAM Polyethylene Glycol 3350 [Miralax] 17 gm PO DAILY L.acidoph,Paracasei, B.lactis [Probiotic] 1 cap PO DAILY DULoxetine HCL [Cymbalta] 20 mg PO QAM Ondansetron Odt [Zofran ODT] 4 mg PO Q8HR PRN #9 tab PRN Reason: Nausea Levothyroxine Sodium [Synthroid] 75 mcg PO QAM Discharge Medication List DULoxetine HCL [Cymbalta] 20 mg PO QAM 05/26/20 [History] L.acidoph,Paracasei, B.lactis [Probiotic] 1 cap PO DAILY 05/26/20 [History] Acetaminophen Tab [Tylenol] 1,000 mg PO Q6HR PRN #30 tablet 05/28/20 [Rx] Ondansetron Odt [Zofran ODT] 4 mg PO Q8HR PRN #9 tab 05/28/20 [Rx] Simethicone 40 mg/0.6 ml Drops [Mylicon Drops] 40 mg PO PCHS PRN #30 ml 05/28/20 [Rx] bisacodyL [Dulcolax] 5 mg PO DAILY PRN #10 tablet. 05/28/20 [Rx] Levothyroxine Sodium [Synthroid] 75 mcg PO QAM 06/06/20 [History] Omeprazole [PriLOSEC] 40 mg PO QAM 06/06/20 [History] Polyethylene Glycol 3350 [Miralax] 17 gm PO DAILY 06/06/20 [History] Follow up Appointment(s)/Referral(s): Neida Sadler MD [STAFF PHYSICIAN] - 06/16/20 Patient Instructions/Handouts: *[facility] - (Anesthesia) Endoscopy Discharge Instructions, Colonoscopy (DC) Activity/Diet/Wound Care/Special Instructions: Repeat colonoscopy in 10 years2030 Discharge Disposition: HOME SELF-CARE
[2020-06-08 08:43] VITALS: RESP 16
[2020-06-08 09:01] VITALS: BP 104/69; PULSE 62
== END 2020-06-08 09:11 | disposition home or self-care (01) ==
LOC: ORWHC2ENDO 07:16
PROVIDERS: ATTEND Surgery Plastic and Reconstructive Surgery
DX: K56.2 Volvulus (principal); Q43.8 Other specified congenital malformations of intestine; K64.0 First degree hemorrhoids; K64.1 Second degree hemorrhoids; K21.9 Gastro-esophageal reflux disease without esophagitis; Z98.84 Bariatric surgery status; Z90.49 Acquired absence of other specified parts of digestive tract; Z98.890 Other specified postprocedural states; Z79.899 Other long term (current) drug therapy; Z79.890 Hormone replacement therapy; Z88.1 Allergy status to other antibiotic agents; Z91.048 Other nonmedicinal substance allergy status; Z91.09 Other allergy status, other than to drugs and biological substances; E07.9 Disorder of thyroid, unspecified
CPT/HCPCS: 45378; J2704

== ENCOUNTER → 2020-06-21 | Outpatient (CLI) | payer OTHER ==
--- NOTE | 2020-06-21 11:01 | FL ---
EXAMINATION TYPE: FL barium enema DATE OF EXAM: 06/21/2020 COMPARISON: None HISTORY: Volvulus, presurgical evaluation TECHNIQUE: Single contrast technique utilizing barium was performed following consultation with the amanda nath surgeon. Contrast refluxed to the cecum. Multiple overhead radiographs and fluoroscopic spot images were obtained. FINDINGS: Fluoroscopy time: 1 minute 55 seconds Images: 27 Barium refluxes through the redundant sigmoid colon. No volvulus is evident. Contrast extends to what appears to be the cecum. The appendix and cecum are not initially identified. The distal ileum is id entified on postevacuation films however. No persistent filling defect is identified. No suspicious circumferential area of narrowing is identi fied. There is some redundancy of the transverse colon. Presacral space is normal. IMPRESSION: 1. Redundancy of the sigmoid colon with mild redundancy of the transverse colon. 2. No suspicious persistent changes to suggest neoplasm within the colon on this single contrast stud y.
== END | disposition home or self-care (01) ==
LOC: RADFLMAIN 09:25
PROVIDERS: ATTEND Surgery Plastic and Reconstructive Surgery
DX: Z01.818 Encounter for other preprocedural examination (principal); Q43.8 Other specified congenital malformations of intestine
CPT/HCPCS: 74270

== ENCOUNTER 2020-07-15 09:25 | Inpatient (IN) | payer OTHER ==
[2020-07-08 14:33] VITALS: BMI 23.3
--- NOTE | 2020-07-21 09:12 | P.PN ---
Progress Note - Text Progress Note Date: 07/21/20 Spoke to patient and reviewed dietary restrictions and bowel prep for her surgery. All questions were addressed.
[2020-07-22] MEDS ORDERED: HEPARIN SODIUM,PORCINE/PF 5,000 UNIT/0.5 ML SYRINGE SQ PRN (05:00)
[2020-07-22] MEDS ORDERED: metroNIDAZOLE-NS PMX 500 MG in SALINE 1 100ML.BAG IVPB PRN (05:00)
[2020-07-22] MEDS ORDERED: ACETAMINOPHEN TAB 500 MG TAB PO PRN (07:00)
[2020-07-22] MEDS ORDERED: ALVIMOPAN 12 MG CAPSULE PO PRN (07:00)
[2020-07-22] MEDS ORDERED: Antibiotics per Pharmacy 1 EACH MISC MISCELLANE PRN (07:55)
[2020-07-22] MEDS ORDERED: SCOPOLAMINE 1.5MG/72HR PATCH TRANSDERM ONE (07:59)
[2020-07-22] MEDS ORDERED: DEXAMETHASONE SOD PHOSPHATE 4 MG/ML 1 ML VIAL IV ONE (07:59)
[2020-07-22] MEDS ORDERED: ONDANSETRON 4 MG/2 ML VIAL IVP ONE (07:59)
[2020-07-22] MEDS ORDERED: MIDAZOLAM 2 MG/2 ML VIAL IV PRN (07:59)
--- NOTE | 2020-07-22 07:59 | P.GSHP ---
History of Present Illness H&P Date: 07/22/20 CHIEF COMPLAINT: History of sigmoid volvulus HISTORY OF PRESENT ILLNESS: The patient is a 54-year-old female with long- standing history of chronic constipation including large bowel obstruction secondary to sigmoid volvulus. She was hospitalized over 1-2 months ago for large bowel obstruction. She completed a colonoscopy which excluded underlying neoplasm. Now she presents for sigmoid colon resection. PAST MEDICAL HISTORY: 1. Morbid obesity due to excess calories 2. Body mass index of 54.0, initial 3. Osteoarthritis of the knees. 4. Osteoarthritis of the lower back. 5. Hypertensive heart disease. 6. Gastroesophageal reflux disease 7. Depressive disorder 8. Obstructive sleep apnea PAST SURGICAL HISTORY: 1. Cholecystectomy 2. Gastric Bypass 3. Orthopedic procedure HOME MEDICATIONS: Home Medications Medication Instructions Recorded Confirmed DULoxetine HCL [Cymbalta] 20 mg PO QAM 05/26/20 07/08/20 L.acidoph,Paracasei, B.lactis 1 cap PO DAILY 05/26/20 07/08/20 [Probiotic] Levothyroxine Sodium [Synthroid] 75 mcg PO QAM 06/06/20 07/08/20 Omeprazole [PriLOSEC] 40 mg PO QAM 06/06/20 07/08/20 Polyethylene Glycol 3350 [Miralax] 17 gm PO DAILY 06/06/20 07/08/20 Multivitamins, Thera [Multivitamin 1 tab PO DAILY 07/08/20 07/08/20 (formulary)] bisacodyL [Dulcolax] 5 mg PO BID 07/08/20 07/08/20 ALLERGIES: Allergies Allergy/AdvReac Type Severity Reaction Status Date / Time nickel Allergy Swelling Verified 07/08/20 14:15 Tetracyclines Allergy Rash/Hives Verified 07/08/20 14:15 steri strips Allergy blisters Uncoded 07/08/20 14:15 SOCIAL HISTORY: Past tobacco use. FAMILY HISTORY: No family history of ulcerative colitis disease or Crohn's disease. Family history of morbid obesity. No lupus in the family. No reports of stomach or esophageal cancer. REVIEW OF ORGAN SYSTEMS: CONSTITUTIONAL: At height of 5 feet 5 inches, her ideal body weight is 149 pounds. Her highest weight was 324 pounds. Her body mass index highest was 54.0. HEENT: Denies any active troubles with vision or hearing. No troubles with swallowing. ENDOCRINE: No diabetes. No hypothyroidism. CARDIOVASCULAR: No reports of palpitations or heart attacks or chest pain. RESPIRATORY: Has daytime somnolence. No asthma. GI: Denies any bright red blood per rectum. No diarrhea. Has constipation. MUSCULOSKELETAL: Has lower back pain and joint pain. Has osteoarthritis of the knees. NEURO: No headaches. No seizure disorders. PSYCH: Has depression. No suicidal ideation. RHEUMATOLOGIC: No lupus. No rheumatoid arthritis. HEMATOLOGIC: Denies any abnormal bleeding or bruising. No personal history of DVTs. SKIN: No rash. No skin cancer. PHYSICAL EXAM: VITAL SIGNS: Stable GENERAL: Well-developed pleasant in no acute distress. HEENT: No scleral icterus. Extraocular movements grossly intact. Moist buccal mucosa. He is hard of hearing. NECK: Supple without lymphadenopathy. CHEST: Unlabored respirations. Equal bilateral excursions. CARDIOVASCULAR: Regular rate and rhythm. Distal 2+ pulses. ABDOMEN: Soft, nontender, nondistended. MUSCULOSKELETAL: No clubbing, cyanosis, or edema. NERUO: Regular 2-12 grossly intact. PSYCH: Alert and oriented to person place and time. ASSESSMENT: 1. History of previous large bowel obstruction. 2. Sigmoid volvulus. PLAN: 1. Benefits and risks of surgical intervention particular sigmoid volvulus reviewed in detail. Robotic-assisted approach was also described. 2. She has completed an enhanced colon recovery program. 3. DVT prophylaxis. 4. Antibiotic prophylaxis. 5. She is elevated risk for complications due to pre-existing gastric bypass. Past Medical History Past Medical History: GERD/Reflux, Seizure Disorder, Thyroid Disorder Additional Past Medical History / Comment(s): excess sigmoid colon. seizure x1 while in college. seasonal allergies History of Any Multi-Drug Resistant Organisms: None Reported Past Surgical History: Bariatric Surgery, Cholecystectomy, Hernia Repair, Orthopedic Surgery Additional Past Surgical History / Comment(s): left knee replacement, EGD, gastric bypass 1-19 in [place] (Dr. Neida Sadler resumed care of patient at 30 day luz). Extra skin remove in August 2019. Hernia Repair and lysis of adhesions Past Anesthesia/Blood Transfusion Reactions: Previous Problems w/ Anesthesia Additional Past Anesthesia/Blood Transfusion Reaction / Comment(s): states "woke up choking with previous EGD" states "takes alot to put me to sleep", low blood pressure after surgery Past Psychological History: Depression Smoking Status: Never smoker Past Alcohol Use History: None Reported Past Drug Use History: None Reported - Past Family History Mother Family Medical History: No Reported History Medications and Allergies Home Medications Medication Instructions Recorded Confirmed Type DULoxetine HCL [Cymbalta] 20 mg PO QAM 05/26/20 07/08/20 History L.acidoph,Paracasei, B.lactis 1 cap PO DAILY 05/26/20 07/08/20 History [Probiotic] Levothyroxine Sodium [Synthroid] 75 mcg PO QAM 06/06/20 07/08/20 History Omeprazole [PriLOSEC] 40 mg PO QAM 06/06/20 07/08/20 History Polyethylene Glycol 3350 [Miralax] 17 gm PO DAILY 06/06/20 07/08/20 History Multivitamins, Thera [Multivitamin 1 tab PO DAILY 07/08/20 07/08/20 History (formulary)] bisacodyL [Dulcolax] 5 mg PO BID 07/08/20 07/08/20 History Allergies Allergy/AdvReac Type Severity Reaction Status Date / Time nickel Allergy Swelling Verified 07/08/20 14:15 Tetracyclines Allergy Rash/Hives Verified 07/08/20 14:15 steri strips Allergy blisters Uncoded 07/08/20 14:15
[2020-07-22] MEDS: LACTATED RINGERS 1,000 ML IV SCH (10:47)
[2020-07-22] MEDS ORDERED: LIDOCAINE 1% (10MG/ML) FOR IV START INTRADERMA ONE (10:47)
[2020-07-22] MEDS ORDERED: fentaNYL (PF) 50 MCG/ML 2 ML AMP IV ONE (11:19)
[2020-07-22 11:36] LABS: Basophils % (A) 1 %; Eosinophils # (A) 0.1 k/uL (0-0.7); Eosinophils % (A) 1 %; HCT 44.2 % (34.0-46.0); HGB 15.2 gm/dL (11.4-16.0); Lymphocytes # (A) 1.4 k/uL (1.0-4.8); Lymphocytes % (A) 27 %; MCH 31.2 pg (25.0-35.0); MCHC 34.3 g/dL (31.0-37.0); MCV 90.9 fL (80.0-100.0); Monocytes # (A) 0.3 k/uL (0-1.0); Monocytes % (A) 5 %; Neutrophils # (A) 3.5 k/uL (1.3-7.7); Neutrophils % (A) 65 %; Platelet Count 238 k/uL (150-450); RBC 4.86 m/uL (3.80-5.40); RDW 12.3 % (11.5-15.5); WBC 5.4 k/uL (3.8-10.6)
[2020-07-22] MEDS ORDERED: SUCCINYLCHOLINE CHLORIDE 100 MG/5 ML SYR IV ONE (11:37)
[2020-07-22] MEDS ORDERED: PROPOFOL 10 MG/ML 20 ML VIAL IV ONE (11:37)
[2020-07-22] MEDS ORDERED: ROCURONIUM 10 MG/ML (5 ML VIAL) IV ONE (11:37)
[2020-07-22] MEDS ORDERED: ROPIVACAINE 5 MG/ML 30 ML VIAL ONE (11:37)
[2020-07-22] MEDS ORDERED: DEXAMETHASONE SOD PHOSPHATE 10 MG/ML 1 ML VIAL ONE (11:37)
[2020-07-22] MEDS ORDERED: LIDOCAINE 1% INJ 10MG/ML (20 ML MDV) ONE (11:37)
[2020-07-22] MEDS ORDERED: KETAMINE 10 MG/ML 20 ML VIAL ONE (11:37)
[2020-07-22] MEDS ORDERED: NEOSTIGMINE 1 MG/ML 10 ML VIAL ONE (11:37)
[2020-07-22] MEDS ORDERED: HYDROmorphone (PF) 1 MG/ML ONE (11:37)
[2020-07-22] MEDS ORDERED: GLYCOPYRROLATE 0.2 MG/ML 2 ML VIAL ONE (11:37)
[2020-07-22] MEDS ORDERED: fentaNYL (PF) 50 MCG/ML 2 ML AMP ONE (11:37)
[2020-07-22 11:46] LABS: ALT 31 U/L (4-34); AST 45 U/L (14-36); African American GFR (CKD) >90 (>60 ml/min/1.73 sqM); Albumin 4.8 g/dL (3.5-5.0); Alkaline Phosphatase 72 U/L (38-126); Anion Gap 15 mmol/L; Blood Urea Nitrogen 14 mg/dL (7-17); Calcium 9.5 mg/dL (8.4-10.2); Carbon Dioxide 28 mmol/L (22-30); Chloride 97 mmol/L (98-107); Glucose 67 mg/dL (74-99); Non-African American GFR(CKD) >90 (>60 ml/min/1.73 sqM); Potassium 3.2 mmol/L (3.5-5.1); Sodium 140 mmol/L (137-145); Total Bilirubin 0.6 mg/dL (0.2-1.3); Total Protein 7.3 g/dL (6.3-8.2)
[2020-07-22] MEDS ORDERED: LIDOCAINE 2%-EPI 1:100,000 20 ML VIAL SQ ONE (12:16)
--- NOTE | 2020-07-22 13:04 | P.ANPRN ---
Procedure Note - Anesthesia - Nerve Block Performed Bilateral Erector Spinae Single Time Out Performed: Yes (1119) Date of Procedure: 07/22/20 Procedure Start Time: : Procedure Stop Time: Location of Patient: PreOp Indication: Acute Post-Operative Pain, Requested by Surgeon Specifically requested for management of pain by : Neida Sadler Sedation Type: Sedate with meaningful contact maintained Preparation: Sterile Prep Position: Supine Catheter: None Needle Types: Pajunk Needle Gauge: 21 Ultrasound used to visualize needle placement: Yes Ultrasound used to observe medication spread: Yes Injectate: 0.5% Ropivacaine (see comment for volume) ((Ropi 0.5% 15cc + NACL PF 15cc) each side) Blood Aspirated: No Pain Paresthesia on Injection Noted: No Resistance on Injection: Normal Image Stored and Saved: Yes Events: Uneventful and Well Tolerated
--- NOTE | 2020-07-22 15:20 | P.OP ---
Date of Procedure: 07/22/20 Description of Procedure: SURGEON: ISAIAS CISNEROS MD PREOPERATIVE DIAGNOSES: 1. Sigmoid volvulus with history of large bowel obstruction 2. Prior morbid obesity body mass index of 54.0, initial reduced to BMI 23.0 3. Osteoarthritis of the knees. 4. Osteoarthritis of the lower back. 5. Hypertensive heart disease. 6. Gastroesophageal reflux disease 7. Depressive disorder 8. Obstructive sleep apnea 9. Chronic constipation 10. Status post gastric bypass POSTOPERATIVE DIAGNOSES: 1. Sigmoid volvulus with history of large bowel obstruction 2. Prior morbid obesity body mass index of 54.0, initial reduced to BMI 23.0 3. Osteoarthritis of the knees. 4. Osteoarthritis of the lower back. 5. Hypertensive heart disease. 6. Gastroesophageal reflux disease 7. Depressive disorder 8. Obstructive sleep apnea 9. Chronic constipation 10. Status post gastric bypass OPERATION: 1. Robotic-assisted daVinci Xi laparoscopic with sigmoid colectomy and low anterior resection using 29mm EEA [employer] powered stapler 2. Intraoperative colonoscopy for flexible sigmoidoscopy Anesthesia: GETA, local, regional Estimated Blood Loss (ml): 10 Pathology: other (Sigmoid colon, anastomosis) Condition: stable Disposition: floor COMPLICATIONS: None. Operative Findings: 1. Severe sigmoid diverticulosis with pelvic adhesions to the anterior abdominal wall 2. Dilated body of appendix with hyperemia including redundant cecum posterior to the bladder with chronic appendicitis 3. Redundant sigmoid colon for risk of sigmoid volvulus 4. Stool cyst from prior ruptured diverticulitis removed from the pelvis 5. Abnormal location of the cecum and appendix posterior inferior to the bladder identified 6. Resected colon 14 inches (over 1 foot sigmoid colon) 7. Semi-formed stool within the rectum 8. INDICATIONS: The patient is a 54-year-old female with recent large bowel obstruction due to sigmoid volvulus. Surgical intervention was described. Benefits and risks, including infection, bowel injury, ureteral injury, colostomy creation and possibility for additional surgery was discussed at length. Informed consent was obtained. All questions of the patient and family were answered. DESCRIPTION: Earlier the patient had undergone a bowel prep using the enhanced colon recovery program. The patient was transferred to the operating room onto a split leg table and repositioned to modified lithotomy following intubation. A Chawla catheter was placed. The abdomen was then prepped and draped in standard sterile fashion as Ioban was placed along the abdomen to minimize any contamination of skin floor. After a timeout protocol was performed, attention was then brought to the left upper quadrant whereby a 0 degree 5 mm laparoscopic trocar entry was performed. The abdominal cavity was entered and insufflated to 15 mmHg pressure, which was tolerated well. Diagnostic laparoscopy confirmed severe adhesions omentum to abdominal wall involving the right upper quadrant, midline, epigastrium. Next trocars were placed 17 cm superior from the pelvis. A 12-mm trocar was placed along the right lateral abdominal wall. A 8 mm port was placed along the right upper quadrant. Ports were placed 10 cm apart from each other including 15-20 cm away from the target anatomy of the left pelvis. An 8-mm port was was placed along the left upper quadrant. The stapler 12-mm port was arranged along the left lateral abdominal wall. The patient was then placed in Trendelenburg position, at least 21. The robotic da Perla XI system was primed. The robot was docked from the right side of the patient. Using atraumatic graspers and vessel sealer, the robotic system was docked and primed as described. Instruments were interchanged by the judicial assistant including needle passenger coach driver, clip actionscript developer, hook cautery, robotic stapler and vessel sealer. The robot stapler was prepared along the right lateral abdominal wall. Attention was brought to sigmoid colon. The sigmoid mesentery was mobilized using a vessel sealer. Using robot stapler 60 mm green loads, the descending colon was divided. Mobilization of the colon was performed to the pelvic brim along the sacral promontory. The mesentery of the sigmoid colon was mobilized towards the descending colon using a vessel sealer. Next, the top of the rectum was divided using robotic stapler 60 mm green loads. The rest of the sigmoid colon mesentery was mobilized using vessel sealer. Additionally, the sigmoid colon was mobilized onto the colon to minimize injury to the ureters. I went to the foot of the bed for selection of a sizer. Semisolid stools identified within the rectum. A colorectal colon anastomosis with an EEA 29-mm was selected after using a sizer along the rectum. For the proximal sigmoid colon, a 29-mm anvil was placed after creating a colotomy then closed using a stapler at the distal end. The robot arms were temporarily undocked. A stapler was entered along the rectum and mated to the anvil for 1 minute. The anastomosis was created. The donuts were thick on the rectum side and then on the colon side. I then performed a bedside flexible sigmoidoscopy using colonoscope where no leaks or defects were confirmed as the judicial assistant placed normal saline along the pelvis. I re-scrubbed into the case. Irrigation fluid was suctioned from the abdomen. The robot was undocked. All needles were removed from the abdominal cavity. Via the left lateral 12-mm trocar site, the resected colon was retrieved after widening the skin incision to 3-cm. The fascial defect was oversewn using 0 Vicryl and a [place]. All incisions were cleansed using dilute normal saline and hydrogen peroxide mixture. Next all pneumoperitoneum was evacuated from the abdominal cavity. The 8-mm trocar sites were reapproximated using 4-0 Monocryl in an interrupted subcuticular fashion. Local anesthetic was infiltrated to all wounds for postop analgesia. All incisions were also cleansed with diluted hydrogen peroxide. An Optifoam surgical dressing was placed over the colon extraction site. Exofin was applied to the rest of the skin incisions. The patient was extubated successfully. The patient was transferred to the postanesthesia care unit in stable condition. Intraoperative findings including semisolid stool in the rectum identified with increased risk of infection. We'll continue postoperative antibiotics upon discharge.
[2020-07-22] MEDS: HYDROmorphone 0.5 MG/0.5 ML SYRINGE IVP PRN ×2 (15:39→16:08)
[2020-07-22] MEDS ORDERED: SODIUM CHLORIDE 0.9% 1,000 ML IV ONE (15:42)
[2020-07-22] MEDS ORDERED: POTASSIUM CHLORIDE ER 20 MEQ TAB.ER PO STA (15:43)
[2020-07-22] MEDS ORDERED: SODIUM CHLORIDE 0.9% 1,000 ML IV SCH (15:45)
[2020-07-22] MEDS: ACETAMINOPHEN IV (For NPO) 1,000 MG in EMPTY BAG 1 BAG IVPB SCH (16:51)
[2020-07-22] MEDS: SIMETHICONE 40 MG/0.6 ML DROPS 2,000 MG/30 ML BOTTLE PO SCH (17:09)
[2020-07-22] MEDS: ONDANSETRON 4 MG/2 ML VIAL IVP SCH (18:19)
[2020-07-22] MEDS: HYDROmorphone 1 MG/ML 1 ML SYRINGE IVP PRN ×2 (19:05→22:03)
[2020-07-22] MEDS: 0.9% NACL WITH KCL 40 MEQ/L 1,000 ML IV SCH (20:00)
[2020-07-22] MEDS: metroNIDAZOLE-NS PMX 500 MG in SALINE 1 100ML.BAG IVPB SCH (22:01)
[2020-07-22] MEDS: ALVIMOPAN 12 MG CAPSULE PO SCH (22:03)
[2020-07-22] MEDS: HEPARIN SODIUM,PORCINE/PF 5,000 UNIT/0.5 ML SYRINGE SQ SCH (22:03)
[2020-07-23] MEDS: ONDANSETRON 4 MG/2 ML VIAL IVP SCH ×3 (00:28→15:57)
[2020-07-23] MEDS: ACETAMINOPHEN IV (For NPO) 1,000 MG in EMPTY BAG 1 BAG IVPB SCH ×3 (00:28→13:25)
[2020-07-23] MEDS: metroNIDAZOLE-NS PMX 500 MG in SALINE 1 100ML.BAG IVPB SCH ×3 (01:03→14:09)
[2020-07-23] MEDS: SIMETHICONE 40 MG/0.6 ML DROPS 2,000 MG/30 ML BOTTLE PO SCH ×5 (01:04→21:15)
[2020-07-23] MEDS: LEVOTHYROXINE 75 MCG TAB PO SCH (05:49)
[2020-07-23] MEDS: LACTATED RINGERS 1,000 ML IV SCH (08:28)
[2020-07-23] MEDS: ALVIMOPAN 12 MG CAPSULE PO SCH ×2 (08:34→21:16)
[2020-07-23] MEDS: HEPARIN SODIUM,PORCINE/PF 5,000 UNIT/0.5 ML SYRINGE SQ SCH ×2 (08:34→21:16)
[2020-07-23] MEDS: 0.9% NACL WITH KCL 40 MEQ/L 1,000 ML IV SCH ×2 (08:35→17:33)
[2020-07-23] MEDS: DULoxetine HCL 20 MG CAPSULE.DR PO SCH (08:35)
[2020-07-23] MEDS: HYDROmorphone 1 MG/ML 1 ML SYRINGE IVP PRN ×3 (08:37→21:16)
--- NOTE | 2020-07-23 10:11 | P.PN ---
Subjective Progress Note Date: 07/23/20 Principal diagnosis: Sigmoid volvulus Patient doing relatively well this morning. She did pass flatus last night. No bowel movement. Tolerating clear liquids. Chawla catheter being removed this morning. She does feel lightheaded concern her blood pressure was low. She is requesting her antiacids. Objective - Vital Signs Vital signs: Vital Signs Temp 98.3 F 07/23/20 08:00 Pulse 58 L 07/23/20 08:00 Resp 16 07/23/20 08:00 BP 91/55 07/23/20 08:00 Pulse Ox 95 07/23/20 08:00 Intake & Output 07/22/20 07/23/20 07/23/20 18:59 06:59 18:59 Intake Total 1350 Output Total 565 900 Balance 785 -900 Weight 62.8 kg Intake: IV 1350 Output: Urine 555 900 Uretheral (Chawla) 900 Estimated Blood Loss 10 Other: Voiding Method Indwelling Catheter - Exam Abdomen: Soft, nondistended, minimal tenderness, incisions clean and dry - Labs CBC & Chem 7: 07/22/20 10:48 07/22/20 07:55 Labs: Abnormal Lab Results - Last 24 Hours (Table) 07/22/20 Range/Units 07:55 Potassium 3.2 L (3.5-5.1) mmol/L Chloride 97 L (98-107) mmol/L Glucose 67 L (74-99) mg/dL AST 45 H (14-36) U/L Assessment and Plan (1) Sigmoid volvulus Narrative/Plan: Patient doing fairly well after robotic sigmoid colectomy. Complaining of being lightheaded. So she went home to early after her tummy tuck and had a come back to the hospital. Will increase diet to full liquids. Will monitor throughout the day to determine discharge this afternoon. Current Visit: No Status: Acute Code(s): K56.2 - VOLVULUS SNOMED Code(s): 991181968
[2020-07-23 10:22] LABS: Glucose,Whole Blood 93 mg/dL (75-99)
[2020-07-23 11:50] LABS: Basophils # (A) 0.02 X 10*3/uL (0.00-0.10); Basophils % (A) 0.2 %; Eosinophils # (A) 0.01 X 10*3/uL (0.04-0.35); Eosinophils % (A) 0.1 %; HGB 12.2 g/dL (12.0-15.0); Lymphocytes # (A) 1.48 X 10*3/uL (0.90-5.00); Lymphocytes % (A) 15.9 %; MCH 29.8 pg (27.0-32.0); MCHC 31.3 g/dL (32.0-37.0); MCV 95.1 fL (80.0-97.0); Mean Platelet Volume 9.8 fL (9.5-12.2); Monocytes # (A) 0.72 X 10*3/uL (0.20-1.00); Monocytes % (A) 7.8 %; Neutrophils # (A) 7.03 X 10*3/uL (1.80-7.70); Neutrophils % (A) 75.8 %; Platelet Count 213 X 10*3/uL (140-440); RDW 11.9 % (11.5-14.5); WBC 9.28 X 10*3/uL (4.50-10.00)
[2020-07-23] MEDS: PANTOPRAZOLE 40 MG TABLET PO SCH (11:55)
[2020-07-23 12:01] LABS: African American GFR (CKD) 118.1 (60.0-200.0); Anion Gap 11.2 mmol/L (4.00-12.00); BUN/Creat Ratio 16.67 Ratio (12.00-20.00); Calcium 8.9 mg/dL (8.7-10.3); Carbon Dioxide 25.8 mmol/L (21.6-31.8); Non-African American GFR(CKD) 101.9 (60.0-200.0); Potassium 4.2 mmol/L (3.5-5.5)
[2020-07-24] MEDS: ONDANSETRON 4 MG/2 ML VIAL IVP SCH ×2 (01:24→08:18)
[2020-07-24] MEDS: HYDROmorphone 1 MG/ML 1 ML SYRINGE IVP PRN (01:24)
[2020-07-24] MEDS: 0.9% NACL WITH KCL 40 MEQ/L 1,000 ML IV SCH (06:02)
[2020-07-24] MEDS: LEVOTHYROXINE 75 MCG TAB PO SCH (06:04)
[2020-07-24 07:51] VITALS: BP 122/75; PULSE 75; RESP 15; TEMP 98.6
[2020-07-24] MEDS: PANTOPRAZOLE 40 MG TABLET PO SCH (08:18)
[2020-07-24] MEDS: ALVIMOPAN 12 MG CAPSULE PO SCH (08:18)
[2020-07-24] MEDS: HEPARIN SODIUM,PORCINE/PF 5,000 UNIT/0.5 ML SYRINGE SQ SCH (08:18)
[2020-07-24] MEDS: DULoxetine HCL 20 MG CAPSULE.DR PO SCH (08:18)
[2020-07-24] MEDS: SIMETHICONE 40 MG/0.6 ML DROPS 2,000 MG/30 ML BOTTLE PO SCH ×2 (08:19→13:07)
[2020-07-24] MEDS ORDERED: HYDROcodone/APAP 5-325MG 1 EACH TAB PO PRN (09:44)
[2020-07-24] MEDS: LACTATED RINGERS 1,000 ML IV SCH (09:49)
--- NOTE | 2020-07-24 10:12 | P.PN ---
Subjective Progress Note Date: 07/24/20 Principal diagnosis: Sigmoid volvulus Patient doing better than yesterday however states her pain is still increased at 6 out of 10. Requesting oral narcotics for pain. She did have 2 small bowel movements. He is afebrile. Yesterday's labs reviewed. Objective - Vital Signs Vital signs: Vital Signs Temp 98.6 F 07/24/20 07:50 Pulse 75 07/24/20 07:50 Resp 15 07/24/20 07:50 BP 122/75 07/24/20 07:50 Pulse Ox 97 07/24/20 07:50 Intake & Output 07/23/20 07/24/20 07/24/20 18:59 06:59 18:59 Output Total 900 Balance -900 Output: Urine 900 Uretheral (Chawla) 900 Other: Voiding Method Toilet Toilet # Voids 2 - Exam Abdomen: Soft, nondistended, mild left lower quadrant tenderness, dressings clean and dry - Labs CBC & Chem 7: 07/23/20 07:16 07/23/20 07:16 Labs: Abnormal Lab Results - Last 24 Hours (Table) 07/23/20 Range/Units 07:16 MCHC 31.3 L (32.0-37.0) g/dL Eosinophils # 0.01 L (0.04-0.35) X 10*3/uL Assessment and Plan (1) Sigmoid volvulus Narrative/Plan: Overall patient doing fairly well. She does not feel her pain is low enough to be discharged at this time. We will add hydrocodone. Possible discharge later today if doing well. Current Visit: No Status: Acute Code(s): K56.2 - VOLVULUS SNOMED Code(s): 574906891
--- NOTE | 2020-07-25 20:44 | P.DS ---
Providers Date of admission: 07/22/20 10:05 Expected date of discharge: 07/24/20 Attending physician: Neida Sadler Primary care physician: Corbin Etienne - Discharge Diagnosis(es) (1) Gastric bypass status for obesity Status: Acute (2) Sigmoid volvulus Status: Acute Hospital Course: POSTOPERATIVE DIAGNOSES: 1. Sigmoid volvulus with history of large bowel obstruction 2. Prior morbid obesity body mass index of 54.0, initial reduced to BMI 23.0 3. Osteoarthritis of the knees. 4. Osteoarthritis of the lower back. 5. Hypertensive heart disease. 6. Gastroesophageal reflux disease 7. Depressive disorder 8. Obstructive sleep apnea 9. Chronic constipation 10. Status post gastric bypass INDICATIONS: The patient is a 54-year-old female with recent large bowel obstruction due to sigmoid volvulus. She underwent robotic sigmoid colectomy and low anterior resection. She was tolerating diet. She was having bowel movement prior to discharge. Discharge instructions were reviewed. Procedures: OPERATION: 1. Robotic-assisted daVinci Xi laparoscopic with sigmoid colectomy and low anterior resection using 29mm EEA [employer] powered stapler 2. Intraoperative colonoscopy for flexible sigmoidoscopy Anesthesia: GETA, local, regional Estimated Blood Loss (ml): 10 Pathology: other (Sigmoid colon, anastomosis) Condition: stable Disposition: floor COMPLICATIONS: None. Operative Findings: 1. Severe sigmoid diverticulosis with pelvic adhesions to the anterior abdominal wall 2. Dilated body of appendix with hyperemia including redundant cecum posterior to the bladder with chronic appendicitis 3. Redundant sigmoid colon for risk of sigmoid volvulus 4. Stool cyst from prior ruptured diverticulitis removed from the pelvis 5. Abnormal location of the cecum and appendix posterior inferior to the bladder identified 6. Resected colon 14 inches (over 1 foot sigmoid colon) 7. Semi-formed stool within the rectum Patient Condition at Discharge: Good Plan - Discharge Summary Discharge Rx Participant: No New Discharge Prescriptions: New Simethicone 40 mg/0.6 ml Drops [Mylicon Drops] 40 mg PO Q6HR PRN #30 ml PRN Reason: Abdominal Distention metroNIDAZOLE [Flagyl] 500 mg PO Q8HR #15 tab Acetaminophen [Tylenol] 650 mg PO Q4H #30 tab HYDROcodone/APAP 5-325MG [[place] 5-325] 1 tab PO Q6HR PRN 3 Days #10 tab PRN Reason: Analgesia Continue Omeprazole [PriLOSEC] 40 mg PO QAM Multivitamins, Thera [Multivitamin (formulary)] 1 tab PO DAILY L.acidoph,Paracasei, B.lactis [Probiotic] 1 cap PO DAILY DULoxetine HCL [Cymbalta] 20 mg PO QAM Levothyroxine Sodium [Synthroid] 75 mcg PO QAM Discontinued Polyethylene Glycol 3350 [Miralax] 17 gm PO DAILY bisacodyL [Dulcolax] 5 mg PO BID Discharge Medication List DULoxetine HCL [Cymbalta] 20 mg PO QAM 05/26/20 [History] L.acidoph,Paracasei, B.lactis [Probiotic] 1 cap PO DAILY 05/26/20 [History] Levothyroxine Sodium [Synthroid] 75 mcg PO QAM 06/06/20 [History] Omeprazole [PriLOSEC] 40 mg PO QAM 06/06/20 [History] Multivitamins, Thera [Multivitamin (formulary)] 1 tab PO DAILY 07/08/20 [History] Acetaminophen [Tylenol] 650 mg PO Q4H #30 tab 07/22/20 [Rx] Simethicone 40 mg/0.6 ml Drops [Mylicon Drops] 40 mg PO Q6HR PRN #30 ml 07/22/20 [Rx] metroNIDAZOLE [Flagyl] 500 mg PO Q8HR #15 tab 07/22/20 [Rx] HYDROcodone/APAP 5-325MG [[place] 5-325] 1 tab PO Q6HR PRN 3 Days #10 tab 07/24/20 [Rx] Follow up Appointment(s)/Referral(s): Neida Sadler MD [STAFF PHYSICIAN] - 07/26/20 (Please call the office on M onday to confirm time.) Patient Instructions/Handouts: Colectomy (GEN), Laparoscopic Bowel Resection (IP), Colectomy Diet (ED) Activity/Diet/Wound Care/Special Instructions: EXPECT BLOOD IN STOOLS DO NOT REMOVE DRESSING Wear abdominal binder at all times for comfort. No lifting over 10 pounds in 4 weeks until August 21. May shower. No bath tub soaks for two weeks until August 05 Avoid steak, tough meats and seeds such as raspberry seeds. No driving while on narcotics. Use Tylenol scheduled for the next 24-48 hours for best pain relief. Use ice along incisions for today to prevent swelling. Discharge Disposition: HOME SELF-CARE
== END 2020-07-24 14:05 | disposition home or self-care (01) | DRG 330 ==
LOC: 2ORMAIN 07-22 10:05 → 4SSUR 07-22 14:52
PROVIDERS: ADMIT Surgery Plastic and Reconstructive Surgery; ATTEND Surgery Plastic and Reconstructive Surgery
PROC: 8E0W4CZ Robotic Assisted Procedure of Trunk Region, Percutaneous Endoscopic Approach (ICD-10-PCS; 2020-07-22)
PROC: 0DJD8ZZ Inspection of Lower Intestinal Tract, Via Natural or Artificial Opening Endoscopic (ICD-10-PCS; 2020-07-22)
PROC: 0DTN4ZZ Resection of Sigmoid Colon, Percutaneous Endoscopic Approach (ICD-10-PCS; principal; 2020-07-22 11:55)
DX: K57.30 Diverticulosis of large intestine without perforation or abscess without bleeding (principal); Q43.8 Other specified congenital malformations of intestine; N73.6 Female pelvic peritoneal adhesions (postinfective); G47.33 Obstructive sleep apnea (adult) (pediatric); Z98.84 Bariatric surgery status; K21.9 Gastro-esophageal reflux disease without esophagitis; M17.0 Bilateral primary osteoarthritis of knee; I11.9 Hypertensive heart disease without heart failure; F32.9 Major depressive disorder, single episode, unspecified; K36 Other appendicitis; M47.9 Spondylosis, unspecified; Z90.49 Acquired absence of other specified parts of digestive tract; Z79.890 Hormone replacement therapy; G40.909 Epilepsy, unspecified, not intractable, without status epilepticus; Z96.652 Presence of left artificial knee joint; Z87.891 Personal history of nicotine dependence
CPT/HCPCS: 64999; 80048; 80053; 85025; 86850; 86900; 86901

== ENCOUNTER → 2020-07-18 | Outpatient (CLI) | payer OTHER ==
[2020-07-18 13:52] LABS: HCT 41.4 % (34.0-46.0); HGB 13.8 gm/dL (11.4-16.0); MCH 30.8 pg (25.0-35.0); MCHC 33.4 g/dL (31.0-37.0); MCV 92.2 fL (80.0-100.0); Mean Platelet Volume 6.8; Platelet Count 223 k/uL (150-450); RBC 4.49 m/uL (3.80-5.40); RDW 12.8 % (11.5-15.5); WBC 5.6 k/uL (3.8-10.6)
[2020-07-18 14:14] LABS: ALT 22 U/L (4-34); AST 32 U/L (14-36); African American GFR (CKD) >90 (>60 ml/min/1.73 sqM); Albumin 4.2 g/dL (3.5-5.0); Alkaline Phosphatase 56 U/L (38-126); Anion Gap 9 mmol/L; Blood Urea Nitrogen 21 mg/dL (7-17); Calcium 9.1 mg/dL (8.4-10.2); Carbon Dioxide 28 mmol/L (22-30); Chloride 101 mmol/L (98-107); Glucose 90 mg/dL (74-99); Non-African American GFR(CKD) >90 (>60 ml/min/1.73 sqM); Potassium 4.6 mmol/L (3.5-5.1); Sodium 138 mmol/L (137-145); Total Bilirubin 0.3 mg/dL (0.2-1.3); Total Protein 6.6 g/dL (6.3-8.2)
== END | disposition home or self-care (01) ==
LOC: LABPAT 13:08
PROVIDERS: ATTEND Surgery Plastic and Reconstructive Surgery
DX: Z01.812 Encounter for preprocedural laboratory examination (principal)
CPT/HCPCS: 36415; 80053; 85027

== ENCOUNTER → 2020-11-03 | Outpatient (CLI) | payer OTHER ==
--- NOTE | 2020-11-04 14:00 | MM ---
Reason for exam: screening (asymptomatic). Last mammogram was performed 2 years and 4 months ago. History: Patient is postmenopausal and is nulliparous. Took hormonal contraceptives for 8 years. Physical Findings: A clinical breast exam by your physician is recommended on an annual basis and results should be correlated with mammographic findings. MG 3D Screening Mammo W/Cad Bilateral CC and MLO view(s) were taken. Prior study comparison: July 16, 2018, bilateral MG 3d screening mammo w/cad. January 20, 2016, mammogram, performed at [facility]. The breast tissue is extremely dense which could obscure a lesion on mammography. Asymmetric breast tissue right outer breast, stable. There is no discrete abnormality. ASSESSMENT: Benign, BI-RAD 2 RECOMMENDATION: Routine screening mammogram of both breasts in 1 year.
== END | disposition home or self-care (01) ==
LOC: RADMAMWWP 15:57
PROVIDERS: ATTEND Internal Medicine
DX: Z12.31 Encounter for screening mammogram for malignant neoplasm of breast (principal); Z78.0 Asymptomatic menopausal state
CPT/HCPCS: 77063; 77067

== ENCOUNTER → 2021-06-26 | Outpatient (CLI) | payer OTHER ==
[2021-06-26 11:19] LABS: Partial Thromboplastin Time 23.3 sec (22.0-30.0); Prothrombin Time 10.6 sec (9.0-12.0)
[2021-06-26 14:33] LABS: HCT 45.3 % (37.2-46.3); HGB 13.9 g/dL (12.0-15.0); MCH 28.5 pg (27.0-32.0); MCHC 30.7 g/dL (32.0-37.0); Mean Platelet Volume 10.3 fL (9.5-12.2); NRBC Per 100 WBC 0 /100 WBCS (0.0-0.0); Platelet Count 243 X 10*3/uL (140-440); RBC 4.87 X 10*6/uL (4.10-5.20); RDW 12.7 % (11.5-14.5); WBC 4.37 X 10*3/uL (4.50-10.00)
[2021-06-26 15:03] LABS: % Iron Saturation 11.41 (12.00-45.00); ALT 21 U/L (8-44); AST 24 U/L (13-35); African American GFR (CKD) 95.9 (60.0-200.0); Albumin 4.5 g/dL (3.8-4.9); Albumin/Globulin Ratio 2.01 (1.60-3.17); Alkaline Phosphatase 64 U/L (41-126); BUN/Creat Ratio 24.46 Ratio (12.00-20.00); Blood Urea Nitrogen 19.4 mg/dL (9.0-27.0); Calcium 9.4 mg/dL (8.7-10.3); Carbon Dioxide 28.5 mmol/L (20.0-27.5); Chloride 103 mmol/L (96-109); Chol/HDL Ratio 2.62 Ratio; Ferritin 18.3 ng/mL (10.0-291.0); Globulin 2.2 g/dL (1.6-3.3); Glucose 98 mg/dL (70-110); Iron 48 ug/dL (50-170); LDL Cholesterol,Calculated 114.7 mg/dL (0.0-131.0); Magnesium 2.4 mg/dL (1.5-2.4); Non-African American GFR(CKD) 82.7 (60.0-200.0); Phosphorus 3.9 mg/dL (2.4-5.1); Potassium 4.6 mmol/L (3.5-5.5); Prealbumin 19.9 mg/dL (18.0-42.0); Sodium 142 mmol/L (135-145); Total Iron Binding Capacity 417 ug/dL (228-460); Total Protein 6.7 g/dL (6.2-8.2); VLDL Calculation 11.28 mg/dL (5.00-40.00)
[2021-06-27 11:44] LABS: Zinc, Serum 76 ug/dL (60-130)
[2021-06-28 09:49] LABS: Vitamin A 51 ug/dL (38-106)
== END | disposition home or self-care (01) ==
LOC: LABWHC1 10:35
PROVIDERS: ATTEND Surgery Plastic and Reconstructive Surgery
DX: D50.8 Other iron deficiency anemias (principal); K91.2 Postsurgical malabsorption, not elsewhere classified; E44.0 Moderate protein-calorie malnutrition; E45 Retarded development following protein-calorie malnutrition; E55.9 Vitamin D deficiency, unspecified; K74.1 Hepatic sclerosis; E66.01 Morbid (severe) obesity due to excess calories; N19 Unspecified kidney failure; K50.90 Crohn's disease, unspecified, without complications
CPT/HCPCS: 36415; 80053; 80061; 82306; 82525; 82607; 82728; 82746; 83036; 83540; 83550; 83735; 83970; 84100; 84134; 84255; 84425; 84443; 84590; 84630; 85027; 85610; 85730